=== PATIENT | male | born 1985 | race American Indian/Alaskan Native ===

== ENCOUNTER 2018-07-09 17:52 | Emergency (ER) | payer MEDICAID, OTHER, SELFPAY ==
[2018-07-09 17:54] VITALS: BP 135/79; PULSE 87; RESP 19; TEMP 36.3; O2SAT 95
[2018-07-09 18:01] VITALS: PULSE 89; RESP 18; O2SAT 94
[2018-07-09 18:03] VITALS: PULSE 89; RESP 17; O2SAT 94
--- NOTE | 2018-07-09 18:04 | DI.RAD.S_ITS ---
PROCEDURE: XR CHEST 2V INDICATIONS: sob, wheezing TECHNIQUE: 2 views of the chest were acquired. COMPARISON: [facility], , CHEST 1 VIEW, 09/04/2017, 22:48. FINDINGS: Surgical changes and devices: None. Lungs and pleura: No pleural effusions or pneumothorax. Lungs are clear. Mediastinum: Mediastinal contours are normal. Heart size is normal. Bones and chest wall: No suspicious bony abnormalities. Soft tissues appear unremarkable. IMPRESSION: No acute cardiopulmonary pathology. Dictated by: Barrington Barron M.D. on 07/09/2018 at 18:30 Approved by: Barrington Barron M.D. on 07/09/2018 at 18:31
[2018-07-09] MEDS: ALBUTEROL 2.5 MG/3 ML NEB (ADULT) INH (18:10)
[2018-07-09] MEDS: ALBUTEROL/IPRATROPIUM 3 ML AMPUL INH (18:10)
--- NOTE | 2018-07-09 18:13 | ED_ITS ---
HPI - SOB/Dyspnea General Chief Complaint: Shortness of Breath/Dyspnea Stated Complaint: BREATHING PROBLEMS Time Seen by Provider: 07/09/18 18:13 Source: patient Mode of arrival: ambulatory Limitations: no limitations History of Present Illness Patient is a 33-year-old female here for evaluation of cough and wheezing and shortness of breath. Patient states that it started within the past day or so. No fevers. Has not tried anything for prior to arrival. No history of asthma. Related Data Home Medications Medication Instructions Recorded Confirmed terbinafine HCl [Lamisil] #0 08/08/17 Previous Rx's Medication Instructions Recorded cyclobenzaprine 5 mg PO Q8HP PRN #10 tab 07/06/16 hydrocodone-acetaminophen [Mal[place]] 1 tab PO Q6HP PRN #10 tab 07/06/16 ibuprofen 800 mg PO TIDP PRN #30 tab 07/06/16 oseltamivir [Tamiflu] 75 mg PO BID #9 cap 08/16/16 prednisone 50 mg PO AMCC #5 tab 09/04/17 albuterol sulfate 2 puff INHALATION Q4-6H PRN #18 07/09/18 gram Allergies Allergy/AdvReac Type Severity Reaction Status Date / Time naproxen [NAPROXEN] Allergy Severe Unverified 01/13/18 12:54 Review of Systems Constitutional Denies fever(s) Cardiovascular Denies chest pain, Reports dyspnea and Reports dyspnea on exertion Respiratory Reports cough, Reports excessive phlegm production, Reports dyspnea, Reports dyspnea on exertion and Reports wheezing Gastrointestinal Gastrointestinal: Denies abdominal pain, Denies nausea and Denies vomiting Musculoskeletal Denies myalgias and Denies arthralgias Integumentary/Breasts Denies lesions and Denies rash Hematologic/Lymphatic Denies easy bleeding and Denies easy bruising Allergic/Immunologic Reports wheezing PFSH Medical History Healthy adult (Acute) Surgical History No pertinent past surgical history (Acute) Social History Smoking Status: Current every day smoker Exam Initial Vital Signs Initial Vital Signs: Vital Signs Temperature 97.4 F L 07/09/18 17:54 Pulse Rate 87 07/09/18 17:54 Respiratory Rate 19 07/09/18 17:54 Blood Pressure 135/79 07/09/18 17:54 Pulse Oximetry 95 07/09/18 17:54 Const General: cooperative, healthy appearing, comfortable, well developed, well groomed and No acute distress Orientation: alert, awake and oriented x3 HENMT Head: normal to inspection and normocephalic Resp Effort & Inspection: normal respiratory effort Auscultation: clear to auscultation bilaterally Cardio Rate: regular rate Rhythm: regular rhythm Pulses: radial pulses present Skin Lesions: no lesions Rashes: no rashes Neuro General: alert, awake and oriented x3 Psych Appearance: grossly normal and well kempt Course Orders Ordered: ED Orders 07/09/18 18:04 XR chest 2V Stat Discontinued Medications Albuterol (Ventolin) 2.5 mg INH NOW ONE Stop: 07/09/18 18:01 Last Admin: 07/09/18 18:10 Dose: 2.5 mg Albuterol/Ipratropium (Duoneb) 3 ml INH NOW ONE Stop: 07/09/18 18:01 Last Admin: 07/09/18 18:10 Dose: 3 ml Dexamethasone (Decadron) 10 mg PO NOW ONE Stop: 07/09/18 18:38 Last Admin: 07/09/18 18:47 Dose: 10 mg Vital Signs - 8 hr 07/09/18 18:55 Temperature 98.2 F Pulse Rate 80 Respiratory Rate 19 Blood Pressure 144/82 H Pulse Oximetry 97 MDM - SOB/Dyspnea Imaging Data Chest x-ray: Radiologist's impression: PROCEDURE: XR CHEST 2V INDICATIONS: sob, wheezing TECHNIQUE: 2 views of the chest were acquired. COMPARISON: [facility], CHEST 1 VIEW, 09/04/2017, 22:48. FINDINGS: Surgical changes and devices: None. Lungs and pleura: No pleural effusions or pneumothorax. Lungs are clear. Mediastinum: Mediastinal contours are normal. Heart size is normal. Bones and chest wall: No suspicious bony abnormalities. Soft tissues appear unremarkable. IMPRESSION: No acute cardiopulmonary pathology. Dictated by: Barrington Barron M.D. on 07/09/2018 at 18:30 Approved by: Barrington Barron M.D. on 07/09/2018 at 18:31 [facility] Narrative Medical decision making narrative: Patient received a nebulizer treatment prior to my evaluation in the ER. After his nebulizer treatment she states she felt much better. Her chest x-ray is unremarkable. Her lungs were clear at the time of my exam. Doubt pneumonia. No indication for antibiotics. Patient was given return precautions. She expressed understanding and agreement plan. Discharge Plan Departure Patient Disposition: Home Clinical Impression: Acute bronchospasm, Upper respiratory infection Discharge Date/Time: 07/09/18 18:58 Interventions: ED Discharge Assessment Last Done: 07/09/18 18:55 Instructions: DI for Viral Upper Respiratory Infection -- Adult Activity Restrictions/Additional Instructions: There was no pneumonia on your chest x-ray today. You were given a dose of steroids here in the emergency department which should help for the next couple days. I would recommend that you start a oral decongestant such as Marisol/ Claritin/Zyrtec or the generic versions of these medications. Your also given a prescription for albuterol. Would recommend that every 4 hr while you are awake for the next 24 that you take 2 puffs of this medication. Return to the emergency department for any new or worsening symptoms Prescriptions: New albuterol sulfate 90 mcg/actuation HFA aerosol inhaler 2 puff INHALATION Q4-6H PRN (Reason: shortness of breath or wheezing) Qty: 18 RF: 0 No Action ibuprofen 800 MG tablet 800 mg PO TIDP PRNQty: 30 RF: 0 hydrocodone-acetaminophen [Mal[place]] 5 MG/325 MG tablet 1 tab PO Q6HP PRNQty: 10 RF: 0 cyclobenzaprine 5 MG tablet 5 mg PO Q8HP PRNQty: 10 RF: 0 oseltamivir [Tamiflu] 75 MG capsule 75 mg PO BID Qty: 9 RF: 0 terbinafine HCl [Lamisil] 250 MG tablet Qty: 0 RF: 0 prednisone 50 MG tablet 50 mg PO AMCC Qty: 5 RF: 0
--- NOTE | 2018-07-09 18:21 | PC.NURSE ---
Pt states that after his nebulizers he feels much better. States when he walks, he had a slight increase in Shortness of Breath. Denies any current shortness of breath.
[2018-07-09] MEDS: DEXAMETHASONE 10 MG/ML VIAL PO (18:47)
[2018-07-09 18:55] VITALS: BP 144/82; PULSE 80; RESP 19; TEMP 36.8; O2SAT 97
== END 2018-07-09 18:58 | disposition home or self-care (01) ==
PROVIDERS: Emergency Provider Emergency Medicine
DX: J98.01 Acute bronchospasm (principal); J06.9 Acute upper respiratory infection, unspecified
CPT/HCPCS: 71046; 94640; 99283; J1100; J7613

== ENCOUNTER 2018-11-08 15:36 | Emergency (ER) | payer MEDICAID, OTHER, SELFPAY ==
[2018-11-08 15:45] VITALS: BP 120/78; PULSE 95; RESP 26; TEMP 36.1; O2SAT 96
[2018-11-08 16:04] VITALS: PULSE 61; RESP 15; O2SAT 96
[2018-11-08] MEDS: ALBUTEROL/IPRATROPIUM 3 ML AMPUL INH (16:04)
--- NOTE | 2018-11-08 16:06 | ED.SOB ---
HPI - SOB/Dyspnea General Chief Complaint: Shortness of Breath/Dyspnea Stated Complaint: OUT OF INHALER HARD TIME BREATHING Time Seen by Provider: 11/08/18 16:06 Source: patient Mode of arrival: ambulatory Limitations: no limitations History of Present Illness Patient is a 33-year-old male who 4 months ago saw all a provider over on the [facility] for shortness of breath and wheezing. He was given an albuterol inhaler and AeroChamber. He does not remember any specific diagnosis. He states that since that time he has been using his albuterol inhaler every 4 hr. He has gone through for refills of this medication. He is here today because the clinic on the [facility] was closed and he needed a refill of his medications. He states he has used every day for the past 4 months. Does not appear that he has followed up with the primary doctor. He stated that he was given the inhaler because he was wheezing denies any chest pain. No lower extremity swelling. No fevers. Related Data Previous Rx's Medication Instructions Recorded albuterol sulfate 2 puff INHALATION Q4-6H PRN #18 07/09/18 gram albuterol sulfate 2 puff INHALATION Q4-6H PRN #18 11/08/18 gram Allergies Allergy/AdvReac Type Severity Reaction Status Date / Time naproxen [NAPROXEN] Allergy Severe Unverified 01/13/18 12:54 Review of Systems Constitutional Denies fever(s) Cardiovascular Denies chest pain and Reports dyspnea Respiratory Reports cough, Reports dyspnea and Reports wheezing Gastrointestinal Gastrointestinal: Denies abdominal pain, Denies nausea and Denies vomiting Musculoskeletal Denies myalgias and Denies arthralgias Integumentary/Breasts Denies rash Hematologic/Lymphatic Comments: Not on anticoagulation Allergic/Immunologic Denies urticaria and Reports wheezing PFSH Medical History Healthy adult (Acute) Surgical History No pertinent past surgical history (Acute) Social History Smoking Status: Current every day smoker Social History Smoking Status: Current every day smoker Exam Initial Vital Signs Initial Vital Signs: Vital Signs Temperature 97.0 F L 11/08/18 15:45 Pulse Rate 95 H 11/08/18 15:45 Respiratory Rate 26 H 11/08/18 15:45 Blood Pressure 120/78 11/08/18 15:45 Pulse Oximetry 96 11/08/18 15:45 Const General: cooperative, comfortable, well developed, well groomed and No acute distress Orientation: alert, awake and oriented x3 HENMT Head: normal to inspection and normocephalic Resp Effort & Inspection: normal respiratory effort Auscultation: clear to auscultation bilaterally Cardio Rate: regular rate Rhythm: regular rhythm Pulses: radial pulses present GI Inspection: non-distended Palpation: soft Skin Lesions: no lesions Rashes: no rashes Neuro General: alert, awake and oriented x3 Extrem General: normal to inspection and capillary refill normal Psych Appearance: grossly normal and well kempt Course Orders Ordered: Discontinued Medications Albuterol/Ipratropium (Duoneb) 3 ml INH NOW ONE Stop: 11/08/18 16:03 Last Admin: 11/08/18 16:04 Dose: 3 ml Vital Signs - 8 hr 11/08/18 15:45 11/08/18 16:04 Temperature 97.0 F L Pulse Rate 95 H 61 Respiratory Rate 26 H 15 Blood Pressure 120/78 Pulse Oximetry 96 96 MDM - SOB/Dyspnea MDM Narrative Medical decision making narrative: My evaluation the patient was done after he received a DuoNeb here in the emergency department. He had no wheezing at that time. Respiratory therapy stated that he did have diffuse wheezing prior to this treatment. Patient states that he feels better. It appears he has been taking his albuterol every 4 hr for the past 4 months on a daily basis. He has not followed up with his primary doctor since the initial prescription. He states he has not been treated with any other medications. I informed him that the albuterol should be a rescue inhaler. Informed him that [place] to discuss pulmonary function test. I will refill his albuterol for now. He was given return precautions. He expressed understanding and agreement with plan. Discharge Plan Departure Patient Disposition: Home Clinical Impression: Diffuse wheezing Instructions: DI for Reactive Airway Disease-Adult Activity Restrictions/Additional Instructions: Tomorrow you [place]. I do recommend that you talk with your doctor about the indications for pulmonary function test. You should not need to use the albuterol as much as you are using it. Return to the emergency department for any new or worsening symptoms. Prescriptions: New albuterol sulfate 90 mcg/actuation HFA aerosol inhaler 2 puff INHALATION Q4-6H PRN (Reason: shortness of breath or wheezing) Qty: 18 RF: 0 No Action albuterol sulfate 90 mcg/actuation HFA aerosol inhaler 2 puff INHALATION Q4-6H PRN (Reason: shortness of breath or wheezing) Qty: 18 RF: 0
--- NOTE | 2018-11-08 16:15 | PC.NURSE ---
Reports cough/SOB for 3-4 months. Ran out of inhaler.
[2018-11-08 17:01] VITALS: BP 122/68; PULSE 78; RESP 16; O2SAT 98
== END 2018-11-08 17:02 | disposition home or self-care (01) ==
PROVIDERS: Emergency Provider Emergency Medicine
DX: R06.2 Wheezing (principal)
CPT/HCPCS: 94640; 99282; 99283

== ENCOUNTER 2018-11-14 08:00 | Emergency (ER) | payer MEDICAID, OTHER, SELFPAY ==
[2018-11-14 08:10] VITALS: BP 127/78; PULSE 74; RESP 22; TEMP 36.4; O2SAT 95
[2018-11-14 08:25] VITALS: PULSE 70; RESP 14; O2SAT 96
[2018-11-14] MEDS: ALBUTEROL/IPRATROPIUM 3 ML AMPUL INH (08:25)
[2018-11-14] MEDS: ALBUTEROL 2.5 MG/3 ML NEB (ADULT) INH (08:38)
--- NOTE | 2018-11-14 08:38 | ED.SOB ---
HPI - SOB/Dyspnea General Chief Complaint: Shortness of Breath/Dyspnea Stated Complaint: SOB,CAN'T FIND INHALER Time Seen by Provider: 11/14/18 08:31 Source: patient Mode of arrival: ambulatory Limitations: no limitations History of Present Illness 33-year-old male comes with complaint of shortness of breath. Patient states he has been having this for several months. He has had checks x-ray in the past and use albuterol sometimes every couple hours. Patient states that he could find his inhaler today so he came to the ER. He short of breath and wheezy. He feels short tight in upper chest when this. Has not had any fevers recently, no nuchal cough or congestion. He sometimes has nasal congested and was started on nasal spray which he states helps a little bit. Patient is not having any chest pain or pressure. No nausea no vomiting no other GI or urinary symptoms. He states that they have been trying to set him up for pulmonary function testing. He is not on any steroid inhalers. He denies any other past medical history, no prior surgical history. He states that he does get a rash when he takes naproxen. Patient currently denies any tobacco or vaping history. Related Data Previous Rx's Medication Instructions Recorded albuterol sulfate 2 puff INHALATION Q4-6H PRN #18 07/09/18 gram albuterol sulfate 2 puff INHALATION Q4-6H PRN #18 11/08/18 gram albuterol sulfate 2 inhalation INHALATION Q4-6H PRN 11/14/18 #1 each beclomethasone dipropionate [Qvar 1 puff INHALATION BID #10.6 gram 11/14/18 RediHaler] prednisone 40 mg PO DAILY #6 tab 11/14/18 Allergies Allergy/AdvReac Type Severity Reaction Status Date / Time naproxen [NAPROXEN] Allergy Severe Unverified 01/13/18 12:54 Review of Systems Review of Systems ROS Unobtainable: All systems reviewed & are unremarkable except as noted in HPI and below Constitutional Denies chills and Denies fever(s) ENT Ears, Nose, Mouth, and Throat: Reports nasal congestion (sometimes) Cardiovascular Denies chest pain, Denies edema, Denies lightheadedness, Denies palpitations, Reports dyspnea and Reports dyspnea on exertion Respiratory Denies change in phlegm color, Denies chest congestion, Denies cough, Denies excessive phlegm production, Denies pain on inspiration, Reports dyspnea, Reports dyspnea on exertion, Denies stridor and Reports wheezing Gastrointestinal Gastrointestinal: Denies abdominal pain, Denies change in bowel habits, Denies diarrhea, Denies nausea and Denies vomiting Endocrine Denies palpitations Allergic/Immunologic Reports wheezing [facility] Medical History Healthy adult (Acute) Surgical History No pertinent past surgical history (Acute) Social History Smoking Status: Current every day smoker Social History Smoking Status: Current every day smoker Exam Narrative Exam Narrative: GEN: obese, well appearing male, alert and oriented x 3, patient appears to be in mild distress. HEENT: Atraumatic, pupils are equal round reactive to light, extraocular movements are intact, nares are clear HEART: Regular rate and rhythm without murmur, clicks, rubs. = LUNGS:Lung breath sounds are equal bilaterally, patient has expiratory wheezes bilaterally, no rales, crackles, chest moves symmetrically. No tachypnea, no accessory muscle use. ABD:bowel sounds normal, soft, non-tender, no guarding, rebound, rigidity, no masses noted, no hepatosplenomegaly MSCL: Non-tender, no muscle atrophy, muscles strength 5/5 upper and lower extremities, full range of motion, normal gait NEURO:CN 2-12 intact, sensation normal Initial Vital Signs Initial Vital Signs: Vital Signs Temperature 97.6 F 11/14/18 08:10 Pulse Rate 74 11/14/18 08:10 Respiratory Rate 22 11/14/18 08:10 Blood Pressure 127/78 11/14/18 08:10 Pulse Oximetry 95 11/14/18 08:10 Course Orders Ordered: ED Orders 11/14/18 08:23 Consult to Respiratory Therapy Evaluate & Treat Discontinued Medications Albuterol (Ventolin) 2.5 mg INH NOW ONE Stop: 11/14/18 08:37 Last Admin: 11/14/18 08:38 Dose: 2.5 mg Albuterol/Ipratropium (Duoneb) 3 ml INH NOW ONE Stop: 11/14/18 08:24 Last Admin: 11/14/18 08:25 Dose: 3 ml Vital Signs - 8 hr 11/14/18 08:10 11/14/18 08:25 11/14/18 08:44 Temperature 97.6 F Pulse Rate 74 70 90 Respiratory Rate 22 14 Blood Pressure 127/78 Pulse Oximetry 95 96 98 MDM - SOB/Dyspnea MDM Narrative Medical decision making narrative: Discussed with patient he has had x-ray imaging in the past for evaluation of lung structure with no acute changes. Discussed with patient he does need to get a PFT, we also discussed starting a steroid inhaler which I think would be helpful for him. He may benefit from a very short burst of steroids. Patient has follow-up with primary care. He does have a spacer at home and has had teaching in the past had to use it. Recheck after DuoNeb and a 2nd albuterol and patient is completely clear with no wheezing. He states he feels much better. Reviewed that he should use the steroid inhaler twice daily regardless of symptoms. And to use the albuterol as a Band-Aid or rescue inhaler. He has spacer. We did discuss rinsing his mouth to avoid steroid/thrush. Patient has follow-up with primary care that had discussion about PFT he is going to work on getting that set up. Gave him a script for a short burst of steroids as needed. Patient and family are comfortable with the plan. Discharge Plan Departure Patient Disposition: Home Clinical Impression: Exacerbation of reactive airway disease Qualifiers: Asthma persistence: persistent Instructions: DI for Reactive Airway Disease-Adult Activity Restrictions/Additional Instructions: Follow up with primary care in the next 2-3 days for recheck and to get you pulmonary function testing of your lungs. Call for an appointment tomorrow. Continue albuterol 1-2 puffs every 4 hours as needed for wheezing/shortness of breath. Start steroid inhaler and use twice daily regardless of wheezing or if no wheezing. Take oral steroids until gone. Take with food or milk. Return to the emergency department for persistent fevers, increasing shortness of breath, lightheadedness, passing out, chest pain or pressure, persistent vomiting, swelling in her lower extremities or other new or concerning symptoms. Prescriptions: New prednisone 20 mg tablet 40 mg PO DAILY Qty: 6 RF: 0 albuterol sulfate 90 mcg/actuation aerosol powdr breath activated 2 inhalation INHALATION Q4-6H PRN (Reason: shortness of breath or wheezing) Qty: 1 RF: 0 Qvar RediHaler 80 mcg/actuation HFA aerosol breath activated 1 puff INHALATION BID Qty: 10.6 RF: 0 No Action albuterol sulfate 90 mcg/actuation HFA aerosol inhaler 2 puff INHALATION Q4-6H PRN (Reason: shortness of breath or wheezing) Qty: 18 RF: 0 albuterol sulfate 90 mcg/actuation HFA aerosol inhaler 2 puff INHALATION Q4-6H PRN (Reason: shortness of breath or wheezing) Qty: 18 RF: 0 Stand Alone Forms: Work Release Note
[2018-11-14 08:44] VITALS: PULSE 90; O2SAT 98
[2018-11-14 09:23] VITALS: BP 131/73; PULSE 69; RESP 18; O2SAT 96
== END 2018-11-14 09:25 | disposition home or self-care (01) ==
PROVIDERS: Emergency Provider Emergency Medicine
DX: J45.901 Unspecified asthma with (acute) exacerbation (principal)
CPT/HCPCS: 94640; 99282; J7613

== ENCOUNTER 2019-04-27 10:03 | Inpatient (IN) | payer MEDICAID, OTHER, SELFPAY ==
[2019-04-27] VITALS (14 sets, daily range): BP systolic 124–151; BP diastolic 50–75; PULSE 66–100; RESP 19–35; TEMP 36.5–36.8; O2SAT 88–96; BMI 39.5
--- NOTE | 2019-04-27 10:13 | DI.RAD.S_ITS ---
PROCEDURE: XR CHEST 2V INDICATIONS: shortness of breath TECHNIQUE: 2 views of the chest were acquired. COMPARISON: [facility], CR, XR CHEST 2V, 07/09/2018, 17:46. FINDINGS: Surgical changes and devices: None. Lungs and pleura: Lungs are clear. No pleural effusions or pneumothorax. Mediastinum: Mediastinal contours are normal. Heart size is normal. Bones and chest wall: No suspicious bony abnormalities. Soft tissues appear unremarkable. IMPRESSION: No acute cardiopulmonary pathology. Dictated by: Barrington Barron M.D. on 04/27/2019 at 10:37 Approved by: Barrington Barron M.D. on 04/27/2019 at 10:37
--- NOTE | 2019-04-27 10:19 | ED.ASTHMA ---
HPI - Asthma General Chief Complaint: Asthma Stated Complaint: asthma exacerbation Time Seen by Provider: 04/27/19 10:19 Source: patient Mode of arrival: ambulatory Limitations: no limitations History of Present Illness HPI Narrative: 34-year-old male comes in with complaint of wheezing. Patient states started yesterday. He got an albuterol inhaler from the clinic and has been using at throughout the day with multiple puffs. Patient states that he has not had any fevers or chills. He has had a cough it has been a little bit productive clearish coloration. Patient denies any chest pain or pressure. Little bit headache numb, no nausea or vomiting. No other GI or urinary symptoms. No swelling in his lower extremities. Patient has known asthma, denies any other medical issues. Does not use tobacco but does smoke marijuana intermittently. No recent marijuana use. He denies any prior hospitalizations for his asthma but has had many ER visits. He has never been intubated or had BiPAP. He states that he picked up the inhaler yesterday at the pharmacy. He is not currently on any other medications. No cold cough or congestion that he is aware of. Related Data Home Medications Medication Instructions Recorded Confirmed albuterol sulfate [ProAir HFA] 2 puff INHALATION Q4H PRN 04/27/19 04/27/19 Previous Rx's Medication Instructions Recorded beclomethasone dipropionate [Qvar 1 puff INHALATION BID #10.6 gram 11/14/18 RediHaler] Allergies Allergy/AdvReac Type Severity Reaction Status Date / Time naproxen [NAPROXEN] Allergy Severe Wheezing Verified 04/27/19 10:21 Review of Systems Review of Systems ROS Unobtainable: All systems reviewed & are unremarkable except as noted in HPI and below Constitutional Denies chills, Denies fever(s), Reports headache(s), Denies lethargy and Denies weakness ENT Ears, Nose, Mouth, and Throat: Reports headache(s) Cardiovascular Denies chest pain, Denies irregular heart rhythm, Denies lightheadedness, Reports palpitations, Reports dyspnea, Reports dyspnea on exertion and Denies orthopnea Respiratory Denies change in phlegm color, Denies chest congestion, Reports cough, Reports excessive phlegm production (Clear), Reports dyspnea, Reports dyspnea on exertion and Reports wheezing Gastrointestinal Gastrointestinal: Denies abdominal pain, Denies change in bowel habits, Denies diarrhea, Denies nausea and Denies vomiting Genitourinary Denies hematuria, Denies flank pain, Denies urinary frequency and Denies urinary urgency Musculoskeletal Denies other (Swelling lower extremities) Neurologic Reports headache(s) and Denies weakness Endocrine Reports palpitations Allergic/Immunologic Reports wheezing Exam Narrative Exam Narrative: GENERAL: Alert and oriented x three, obese, well-appearing male in [id number] distress. HEENT: Head normocephalic, atraumatic, EOMI, pupils reactive, face symmetric, moist mucous membranes NECK: Supple, full range of motion CARDIOVASCULAR: Tachycardic but Regular rate and rhythm without murmurs, rubs or gallops. RESPIRATORY: Breath sounds equal bilaterally, bilateral wheezes particularly in the bases, no crackles rales or rhonchi. Mild tachypnea. Patient is able to speak in 5-6 word sentences. ABDOMEN: Soft, nontender. Normoactive bowel sounds all 4 quadrants. No guarding or rebound, rigidity, no mass : No CVA tenderness EXTREMITIES: Normal range of motion, no clubbing or edema. Neurovascularly intact NEUROLOGICAL: Cranial nerves II through XII grossly intact. Moving all extremities SKIN: Warm, dry, no petechiae, no rashes or lesions. Initial Vital Signs Initial Vital Signs: Vital Signs Temperature 97.7 F 04/27/19 10:00 Pulse Rate 94 H 04/27/19 10:00 Respiratory Rate 21 04/27/19 10:00 Blood Pressure 151/68 H 04/27/19 10:00 Pulse Oximetry 93 04/27/19 10:00 [facility] Social History (Updated 04/27/19 @ 10:26 by Magaly Bernstein DO) household members: none Smoking Status: Former smoker alcohol intake: current substance use type: marijuana Course Orders Ordered: ED Orders 04/27/19 12:05 Respiratory Panel (Film Array) Stat 04/27/19 14:00 Education, smoking cessation ONGOING 04/27/19 14:03 Consult to Discharge Planning Routine Education, smoking cessation ONGOING 04/27/19 15:10 MRSA PCR Stat Al Hydrox/Mg Hydrox/Simethicone (Maalox Plus) 30 ml PO Q6HR PRN PRN Reason: Dyspepsia Albuterol (Ventolin) 2.5 mg INH [id number] PRN PRN Reason: Shortness Of Breath Albuterol/Ipratropium (Duoneb) 3 ml INH RTQ4HR [facility] Last Admin: 04/27/19 16:20 Dose: 3 ml Calcium Carbonate (Tums) 1,000 mg PO Q4HR PRN PRN Reason: Dyspepsia Loratadine (Claritin) 10 mg PO DAILY [facility] Last Admin: 04/27/19 15:35 Dose: 10 mg Magnesium Hydroxide (Milk Of Magnesia) 30 ml PO DAILY PRN PRN Reason: Constipation Methylprednisolone (Solu-Medrol 125 Mg Vial) 60 mg IV Q8H [facility] Last Admin: 04/27/19 15:35 Dose: 60 mg Stored In Pharmacy 1 each INH DAILY PRN PRN Reason: PROTOCOL Ondansetron HCl (Zofran) 4 mg IV Q8HR PRN PRN Reason: Nausea And Vomiting Sennosides (Senna) 17.2 mg PO BEDTIME [facility] Discontinued Medications Albuterol (Ventolin) 7.5 mg INH NOW ONE Stop: 04/27/19 10:24 Last Admin: 04/27/19 10:34 Dose: 7.5 mg Albuterol (Ventolin) 2.5 mg INH NOW ONE Stop: 04/27/19 13:49 Last Admin: 04/27/19 13:48 Dose: 2.5 mg Magnesium Sulfate (Magnesium Sulfate) 2 gm in 50 mls @ 25 mls/hr IV NOW ONE Stop: 04/27/19 12:23 Last Infusion: 04/27/19 12:18 Dose: 0 mls/hr Admin: 04/27/19 10:29 Dose: 25 mls/hr Famotidine (Pepcid) 20 mg in 50 mls @ 200 mls/hr IV NOW ONE Stop: 04/27/19 14:14 Last Admin: 04/27/19 15:42 Dose: 200 mls/hr Methylprednisolone (Solu-Medrol 125 Mg Vial) 125 mg IV NOW ONE Stop: 04/27/19 10:24 Last Admin: 04/27/19 10:29 Dose: 125 mg Vital Signs - 8 hr 04/27/19 11:30 04/27/19 12:00 04/27/19 12:30 Pulse Rate 100 H 82 93 H Respiratory Rate 27 H 28 H 30 H Blood Pressure Blood Pressure [Right Arm] 134/50 L 124/56 L 138/61 Pulse Oximetry 91 90 L 88 L 04/27/19 13:00 04/27/19 13:30 04/27/19 13:54 Pulse Rate 77 72 90 Respiratory Rate 32 H 30 H 28 H Blood Pressure Blood Pressure [Right Arm] 130/72 134/60 Pulse Oximetry 90 L 90 L 04/27/19 14:00 04/27/19 14:56 04/27/19 18:16 Pulse Rate 76 88 Respiratory Rate 19 20 Blood Pressure 139/71 Blood Pressure [Right Arm] 132/61 Pulse Oximetry 94 96 94 MDM - Asthma Lab Data Attestation: I reviewed the patient's lab results. Result diagrams: 04/27/19 10:20 04/27/19 10:20 Lab Results 04/27/19 04/27/19 04/27/19 Range/Units 10:20 10:20 10:20 WBC 6.9 (4.5-11.0) X10^3/uL RBC 4.94 (4.5-5.9) X10^6/uL Hgb 14.4 (13.5-17.5) g/dL Hct 41.5 (41-53) % MCV 84.1 (80-100) fL MCH 29.1 (26-34) PG MCHC 34.7 (30-36) % RDW 13.4 (11.6-14.8) % Plt Count 191 (150-400) X10^3/uL Neut % (Auto) 79.8 H (50-75) % Lymph % (Auto) 11.0 L (25-40) % Mobile % (Auto) 5.2 (3-14) % Eos % (Auto) 3.5 (2-4) % Baso % (Auto) 0.5 (0-2) % Neut # (Auto) 5500 (0470-7131) /uL Lymph # (Auto) 800 L (5999-4957) /uL Mobile # (Auto) 400 (0-900) /uL Eos # (Auto) 200 (0-450) /uL Baso # (Auto) 0 (0-100) /uL Sodium 141 (137-145) mmol/L Potassium 3.6 (3.4-5.1) mmol/L Chloride 105 (98-107) mmol/L Carbon Dioxide 25 (22-32) mmol/L BUN 8 L (9-20) mg/dL Creatinine 0.60 L (0.66-1.25) mg/dL Estimated GFR > 60.0 (>60) mL/min BUN/Creatinine Ratio 13.3 (6-22) Glucose 126 H (70-100) mg/dL Lactate 1.5 (0.7-2.1) mmol/L Calcium 9.0 (8.4-10.2) mg/dL Total Bilirubin 0.7 (0.2-1.3) mg/dL AST 18 (17-59) IU/L ALT 30 (21-72) IU/L Alkaline Phosphatase 74 (38-126) U/L Total Protein 7.2 (6.3-8.2) g/dL Albumin 4.3 (3.5-5.0) g/dL Globulin 2.9 (1.7-4.1) g/dL Albumin/Globulin Ratio 1.5 (1.0-2.8) Nasal Screen MRSA (PCR) (Negative) Chlamy pneumoniae PCR (Not Detect) Adenovirus (PCR) (Not Detect) B.parapertussis DNA PCR (Not Detect) Coronavirus OC43 (PCR) (Not Detect) Coronavirus HKU1 (PCR) (Not Detect) Coronavirus 229E (PCR) (Not Detect) Coronavirus NL63 (PCR) (Not Detect) Human Metapneumovir PCR (Not Detect) Influenza Type A (PCR) (Not Detect) Influenza Type B (PCR) (Not Detect) M. pneumoniae (PCR) (Not Detect) Parainfluenza 1 (PCR) (Not Detect) Parainfluenza 2 (PCR) (Not Detect) Parainfluenza 3 (PCR) (Not Detect) Parainfluenza 4 (PCR) (Not Detect) RSV (PCR) (Not Detect) Entero/Rhino (PCR) (Not Detect) 04/27/19 04/27/19 Range/Units 12:05 15:10 WBC (4.5-11.0) X10^3/uL RBC (4.5-5.9) X10^6/uL Hgb (13.5-17.5) g/dL Hct (41-53) % MCV (80-100) fL MCH (26-34) PG MCHC (30-36) % RDW (11.6-14.8) % Plt Count (150-400) X10^3/uL Neut % (Auto) (50-75) % Lymph % (Auto) (25-40) % Mobile % (Auto) (3-14) % Eos % (Auto) (2-4) % Baso % (Auto) (0-2) % Neut # (Auto) (1008-4288) /uL Lymph # (Auto) (5110-3597) /uL Mobile # (Auto) (0-900) /uL Eos # (Auto) (0-450) /uL Baso # (Auto) (0-100) /uL Sodium (137-145) mmol/L Potassium (3.4-5.1) mmol/L Chloride (98-107) mmol/L Carbon Dioxide (22-32) mmol/L BUN (9-20) mg/dL Creatinine (0.66-1.25) mg/dL Estimated GFR (>60) mL/min BUN/Creatinine Ratio (6-22) Glucose (70-100) mg/dL Lactate (0.7-2.1) mmol/L Calcium (8.4-10.2) mg/dL Total Bilirubin (0.2-1.3) mg/dL AST (17-59) IU/L ALT (21-72) IU/L Alkaline Phosphatase (38-126) U/L Total Protein (6.3-8.2) g/dL Albumin (3.5-5.0) g/dL Globulin (1.7-4.1) g/dL Albumin/Globulin Ratio (1.0-2.8) Nasal Screen MRSA (PCR) Negative for mrsa (Negative) Chlamy pneumoniae PCR Not detected (Not Detect) Adenovirus (PCR) Not detected (Not Detect) B.parapertussis DNA PCR Not detected (Not Detect) Coronavirus OC43 (PCR) Not detected (Not Detect) Coronavirus HKU1 (PCR) Not detected (Not Detect) Coronavirus 229E (PCR) Not detected (Not Detect) Coronavirus NL63 (PCR) Not detected (Not Detect) Human Metapneumovir PCR Not detected (Not Detect) Influenza Type A (PCR) Not detected (Not Detect) Influenza Type B (PCR) Not detected (Not Detect) M. pneumoniae (PCR) Not detected (Not Detect) Parainfluenza 1 (PCR) Not detected (Not Detect) Parainfluenza 2 (PCR) Not detected (Not Detect) Parainfluenza 3 (PCR) Not detected (Not Detect) Parainfluenza 4 (PCR) Not detected (Not Detect) RSV (PCR) Not detected (Not Detect) Entero/Rhino (PCR) Detected H (Not Detect) Imaging Data Chest x-ray: Radiologist's impression: [address] [address] XRay Report Signed Patient: Irene Guzman LMR#: [id number] : 1985Acct:[id number] Age/Sex: 34 / MDate of Service: 04/27/19 Loc: ED Accession Number: [id number] Procedure: XR chest 2V Ordering Provider: Magaly Bernstein D.O. PROCEDURE: XR CHEST 2V INDICATIONS: shortness of breath TECHNIQUE: 2 views of the chest were acquired. COMPARISON: [facility], , XR CHEST 2V, 07/09/2018, 17:46. FINDINGS: Surgical changes and devices: None. Lungs and pleura: Lungs are clear. No pleural effusions or pneumothorax. Mediastinum: Mediastinal contours are normal. Heart size is normal. Bones and chest wall: No suspicious bony abnormalities. Soft tissues appear unremarkable. IMPRESSION: No acute cardiopulmonary pathology. Dictated by: Barrington Barron M.D. on 04/27/2019 at 10:37 Approved by: Barrington Barron M.D. on 04/27/2019 at 10:37 [facility] Narrative Medical decision making narrative: Patient comes in wheezing, slightly tachycardic. Patient received DuoNeb and 2 albuterol in route [facility] He received 3 additional albuterol here in the department. Patient was improving but then started to require oxygen via nasal cannula. Wheezing has improved he feels a little bit more comfortable but he is requiring oxygen. Chest x-ray was negative, lab work is otherwise normal. Patient has history of asthma. With Dr. Tse who accepts for admission, she requests respiratory panel which was positive for entero/rhinovirus. Patient denies any recent nasal congestion. While patient was here his mother arrived and smelled very strongly of smoke from the smoke [place]. Patient's wheezing worsened and his oxygenation requirements increased to 4.5 L. On recheck he is diffusely wheezy and was given 2 additional albuterol. Patient improved and was transferred to inpatient side. Discharge Plan Departure Patient Disposition: Admitted As Inpatient Clinical Impression: Asthma exacerbation Discharge Date/Time: 04/27/19 14:51 Interventions: ED Discharge Assessment Last Done: 04/27/19 14:15 Admit Date/Time: 04/27/19 12:14 Admit Provider: Eda Tse
--- NOTE | 2019-04-27 10:27 | ED_ITS ---
HPI - Asthma General Chief Complaint: Asthma Stated Complaint: asthma exacerbation Time Seen by Provider: 04/27/19 10:19 Source: patient Mode of arrival: ambulatory Limitations: no limitations History of Present Illness HPI Narrative: 34-year-old male comes in with complaint of wheezing. Patient states started yesterday. He got an albuterol inhaler from the clinic and has been using at throughout the day with multiple puffs. Patient states that he has not had any fevers or chills. He has had a cough it has been a little bit productive clearish coloration. Patient denies any chest pain or pressure. Little bit headache numb, no nausea or vomiting. No other GI or urinary symptoms. No swelling in his lower extremities. Patient has known asthma, denies any other medical issues. Does not use tobacco but does smoke marijuana intermittently. No recent marijuana use. He denies any prior hospitalizations for his asthma but has had many ER visits. He has never been intubated or had BiPAP. He states that he picked up the inhaler yesterday at the pharmacy. He is not currently on any other medications. No cold cough or congestion that he is aware of. Related Data Home Medications Medication Instructions Recorded Confirmed albuterol sulfate [ProAir HFA] 2 puff INHALATION Q4H PRN 04/27/19 04/27/19 Previous Rx's Medication Instructions Recorded beclomethasone dipropionate [Qvar 1 puff INHALATION BID #10.6 gram 11/14/18 RediHaler] Allergies Allergy/AdvReac Type Severity Reaction Status Date / Time naproxen [NAPROXEN] Allergy Severe Wheezing Verified 04/27/19 10:21 Review of Systems Review of Systems ROS Unobtainable: All systems reviewed & are unremarkable except as noted in HPI and below Constitutional Denies chills, Denies fever(s), Reports headache(s), Denies lethargy and Denies weakness ENT Ears, Nose, Mouth, and Throat: Reports headache(s) Cardiovascular Denies chest pain, Denies irregular heart rhythm, Denies lightheadedness, Rep orts palpitations, Reports dyspnea, Reports dyspnea on exertion and Denies orthopnea Respiratory Denies change in phlegm color, Denies chest congestion, Reports cough, Reports excessive phlegm production (Clear), Reports dyspnea, Reports dyspnea on exertion and Reports wheezing Gastrointestinal Gastrointestinal: Denies abdominal pain, Denies change in bowel habits, Denies diarrhea, Denies nausea and Denies vomiting Genitourinary Denies hematuria, Denies flank pain, Denies urinary frequency and Denies urinary urgency Musculoskeletal Denies other (Swelling lower extremities) Neurologic Reports headache(s) and Denies weakness Endocrine Reports palpitations Allergic/Immunologic Reports wheezing Exam Narrative Exam Narrative: GENERAL: Alert and oriented x three, obese, well-appearing male in [id number] distress. HEENT: Head normocephalic, atraumatic, EOMI, pupils reactive, face symmetric, moist mucous membranes NECK: Supple, full range of motion CARDIOVASCULAR: Tachycardic but Regular rate and rhythm without murmurs, rubs or gallops. RESPIRATORY: Breath sounds equal bilaterally, bilateral wheezes particularly in the bases, no crackles rales or rhonchi. Mild tachypnea. Patient is able to speak in 5-6 word sentences. ABDOMEN: Soft, nontender. Normoactive bowel sounds all 4 quadrants. No guarding or rebound, rigidity, no mass : No CVA tenderness EXTREMITIES: Normal range of motion, no clubbing or edema. Neurovascularly intact NEUROLOGICAL: Cranial nerves II through XII grossly intact. Moving all extremities SKIN: Warm, dry, no petechiae, no rashes or lesions. Initial Vital Signs Initial Vital Signs: Vital Signs Temperature 97.7 F 04/27/19 10:00 Pulse Rate 94 H 04/27/19 10:00 Respiratory Rate 21 04/27/19 10:00 Blood Pressure 151/68 H 04/27/19 10:00 Pulse Oximetry 93 04/27/19 10:00 [facility] Social History (Updated 04/27/19 @ 10:26 by Magaly Bernstein DO) household members: none Smoking Status: Former smoker alcohol intake: current substance use type: marijuana Course Orders Ordered: ED Orders 04/27/19 12:05 Respiratory Panel (Film Array) Stat 04/27/19 14:00 Education, smoking cessation ONGOING 04/27/19 14:03 Consult to Discharge Planning Routine Education, smoking cessation ONGOING 04/27/19 15:10 MRSA PCR Stat Al Hydrox/Mg Hydrox/Simethicone (Maalox Plus) 30 ml PO Q6HR PRN PRN Reason: Dyspepsia Albuterol (Ventolin) 2.5 mg INH [id number] PRN PRN Reason: Shortness Of Breath Albuterol/Ipratropium (Duoneb) 3 ml INH RTQ4HR [facility] Last Admin: 04/27/19 16:20 Dose: 3 ml Calcium Carbonate (Tums) 1,000 mg PO Q4HR PRN PRN Reason: Dyspepsia Loratadine (Claritin) 10 mg PO DAILY [facility] Last Admin: 04/27/19 15:35 Dose: 10 mg Magnesium Hydroxide (Milk Of Magnesia) 30 ml PO DAILY PRN PRN Reason: Constipation Methylprednisolone (Solu-Medrol 125 Mg Vial) 60 mg IV Q8H [facility] Last Admin: 04/27/19 15:35 Dose: 60 mg Stored In Pharmacy 1 each INH DAILY PRN PRN Reason: PROTOCOL Ondansetron HCl (Zofran) 4 mg IV Q8HR PRN PRN Reason: Nausea And Vomiting Sennosides (Senna) 17.2 mg PO BEDTIME [facility] Discontinued Medications Albuterol (Ventolin) 7.5 mg INH NOW ONE Stop: 04/27/19 10:24 Last Admin: 04/27/19 10:34 Dose: 7.5 mg Albuterol (Ventolin) 2.5 mg INH NOW ONE Stop: 04/27/19 13:49 Last Admin: 04/27/19 13:48 Dose: 2.5 mg Magnesium Sulfate (Magnesium Sulfate) 2 gm in 50 mls @ 25 mls/hr IV NOW ONE Stop: 04/27/19 12:23 Last Infusion: 04/27/19 12:18 Dose: 0 mls/hr Admin: 04/27/19 10:29 Dose: 25 mls/hr Famotidine (Pepcid) 20 mg in 50 mls @ 200 mls/hr IV NOW ONE Stop: 04/27/19 14:14 Last Admin: 04/27/19 15:42 Dose: 200 mls/hr Methylprednisolone (Solu-Medrol 125 Mg Vial) 125 mg IV NOW ONE Stop: 04/27/19 10:24 Last Admin: 04/27/19 10:29 Dose: 125 mg Vital Signs - 8 hr 04/27/19 11:30 04/27/19 12:00 04/27/19 12:30 Pulse Rate 100 H 82 93 H Respiratory Rate 27 H 28 H 30 H Blood Pressure Blood Pressure [Right Arm] 134/50 L 124/56 L 138/61 Pulse Oximetry 91 90 L 88 L 04/27/19 13:00 04/27/19 13:30 04/27/19 13:54 Pulse Rate 77 72 90 Respiratory Rate 32 H 30 H 28 H Blood Pressure Blood Pressure [Right Arm] 130/72 134/60 Pulse Oximetry 90 L 90 L 04/27/19 14:00 04/27/19 14:56 04/27/19 18:16 Pulse Rate 76 88 Respiratory Rate 19 20 Blood Pressure 139/71 Blood Pressure [Right Arm] 132/61 Pulse Oximetry 94 96 94 MDM - Asthma Lab Data Attestation: I reviewed the patient's lab results. Result diagrams: 04/27/19 10:20 04/27/19 10:20 Lab Results 04/27/19 04/27/19 04/27/19 Range/Units 10:20 10:20 10:20 WBC 6.9 (4.5-11.0) X10^3/uL RBC 4.94 (4.5-5.9) X10^6/uL Hgb 14.4 (13.5-17.5) g/dL Hct 41.5 (41-53) % MCV 84.1 (80-100) fL MCH 29.1 (26-34) PG MCHC 34.7 (30-36) % RDW 13.4 (11.6-14.8) % Plt Count 191 (150-400) X10^3/uL Neut % (Auto) 79.8 H (50-75) % Lymph % (Auto) 11.0 L (25-40) % Wetzel % (Auto) 5.2 (3-14) % Eos % (Auto) 3.5 (2-4) % Baso % (Auto) 0.5 (0-2) % Neut # (Auto) 5500 (2656-8945) /uL Lymph # (Auto) 800 L (6197-3102) /uL Wetzel # (Auto) 400 (0-900) /uL Eos # (Auto) 200 (0-450) /uL Baso # (Auto) 0 (0-100) /uL Sodium 141 (137-145) mmol/L Potassium 3.6 (3.4-5.1) mmol/L Chloride 105 (98-107) mmol/L Carbon Dioxide 25 (22-32) mmol/L BUN 8 L (9-20) mg/dL Creatinine 0.60 L (0.66-1.25) mg/dL Estimated GFR > 60.0 (>60) mL/min BUN/Creatinine Ratio 13.3 (6-22) Glucose 126 H (70-100) mg/dL Lactate 1.5 (0.7-2.1) mmol/L Calcium 9.0 (8.4-10.2) mg/dL Total Bilirubin 0.7 (0.2-1.3) mg/dL AST 18 (17-59) IU/L ALT 30 (21-72) IU/L Alkaline Phosphatase 74 (38-126) U/L Total Protein 7.2 (6.3-8.2) g/dL Albumin 4.3 (3.5-5.0) g/dL Globulin 2.9 (1.7-4.1) g/dL Albumin/Globulin Ratio 1.5 (1.0-2.8) Nasal Screen MRSA (PCR) (Negative) Chlamy pneumoniae PCR (Not Detect) Adenovirus (PCR) (Not Detect) B.parapertussis DNA PCR (Not Detect) Coronavirus OC43 (PCR) (Not Detect) Coronavirus HKU1 (PCR) (Not Detect) Coronavirus 229E (PCR) (Not Detect) Coronavirus NL63 (PCR) (Not Detect) Human Metapneumovir PCR (Not Detect) Influenza Type A (PCR) (Not Detect) Influenza Type B (PCR) (Not Detect) M. pneumoniae (PCR) (Not Detect) Parainfluenza 1 (PCR) (Not Detect) Parainfluenza 2 (PCR) (Not Detect) Parainfluenza 3 (PCR) (Not Detect) Parainfluenza 4 (PCR) (Not Detect) RSV (PCR) (Not Detect) Entero/Rhino (PCR) (Not Detect) 04/27/19 04/27/19 Range/Units 12:05 15:10 WBC (4.5-11.0) X10^3/uL RBC (4.5-5.9) X10^6/uL Hgb (13.5-17.5) g/dL Hct (41-53) % MCV (80-100) fL MCH (26-34) PG MCHC (30-36) % RDW (11.6-14.8) % Plt Count (150-400) X10^3/uL Neut % (Auto) (50-75) % Lymph % (Auto) (25-40) % Wetzel % (Auto) (3-14) % Eos % (Auto) (2-4) % Baso % (Auto) (0-2) % Neut # (Auto) (2122-9741) /uL Lymph # (Auto) (5114-3101) /uL Wetzel # (Auto) (0-900) /uL Eos # (Auto) (0-450) /uL Baso # (Auto) (0-100) /uL Sodium (137-145) mmol/L Potassium (3.4-5.1) mmol/L Chloride (98-107) mmol/L Carbon Dioxide (22-32) mmol/L BUN (9-20) mg/dL Creatinine (0.66-1.25) mg/dL Estimated GFR (>60) mL/min BUN/Creatinine Ratio (6-22) Glucose (70-100) mg/dL Lactate (0.7-2.1) mmol/L Calcium (8.4-10.2) mg/dL Total Bilirubin (0.2-1.3) mg/dL AST (17-59) IU/L ALT (21-72) IU/L Alkaline Phosphatase (38-126) U/L Total Protein (6.3-8.2) g/dL Albumin (3.5-5.0) g/dL Globulin (1.7-4.1) g/dL Albumin/Globulin Ratio (1.0-2.8) Nasal Screen MRSA (PCR) Negative for mrsa (Negative) Chlamy pneumoniae PCR Not detected (Not Detect) Adenovirus (PCR) Not detected (Not Detect) B.parapertussis DNA PCR Not detected (Not Detect) Coronavirus OC43 (PCR) Not detected (Not Detect) Coronavirus HKU1 (PCR) Not detected (Not Detect) Coronavirus 229E (PCR) Not detected (Not Detect) Coronavirus NL63 (PCR) Not detected (Not Detect) Human Metapneumovir PCR Not detected (Not Detect) Influenza Type A (PCR) Not detected (Not Detect) Influenza Type B (PCR) Not detected (Not Detect) M. pneumoniae (PCR) Not detected (Not Detect) Parainfluenza 1 (PCR) Not detected (Not Detect) Parainfluenza 2 (PCR) Not detected (Not Detect) Parainfluenza 3 (PCR) Not detected (Not Detect) Parainfluenza 4 (PCR) Not detected (Not Detect) RSV (PCR) Not detected (Not Detect) Entero/Rhino (PCR) Detected H (Not Detect) Imaging Data Chest x-ray: Radiologist's impression: [address] [address] XRay Report Signed Patient: Irene Guzman LMR#: [id number] : 1985Acct:[id number] Age/Sex: 34 / MDate of Service: 04/27/19 Loc: ED Accession Number: [id number] Procedure: XR chest 2V Ordering Provider: Magaly Bernstein D.O. PROCEDURE: XR CHEST 2V INDICATIONS: shortness of breath TECHNIQUE: 2 views of the chest were acquired. COMPARISON: [facility], , XR CHEST 2V, 07/09/2018, 17:46. FINDINGS: Surgical changes and devices: None. Lungs and pleura: Lungs are clear. No pleural effusions or pneumothorax. Mediastinum: Mediastinal contours are normal. Heart size is normal. Bones and chest wall: No suspicious bony abnormalities. Soft tissues appear unremarkable. IMPRESSION: No acute cardiopulmonary pathology. Dictated by: Barrington Barron M.D. on 04/27/2019 at 10:37 Approved by: Barrington Barron M.D. on 04/27/2019 at 10:37 [facility] Narrative Medical decision making narrative: Patient comes in wheezing, slightly tachycardic. Patient received DuoNeb and 2 albuterol [facility] He received 3 additional albuterol here in the department. Patient was improving but then started to require oxygen via nasal cannula. Wheezing has improved he feels a little bit more comfortable but he is requiring oxygen. Chest x-ray was negative, lab work is otherwise normal. Patient has history of asthma. With Dr. Tse who accepts for admission, she requests respiratory panel which was positive for entero/rhinovirus. Patient denies any recent nasal congestion. While patient was here his mother arrived and smelled very strongly of smoke from the smoke lodge. Patient's wheezing worsened and his oxygenation requirements increased to 4.5 L. On recheck he is diffusely wheezy and was given 2 additional albuterol. Patient improved and was transferred to inpatient side. Discharge Plan Departure Patient Disposition: Admitted As Inpatient Clinical Impression: Asthma exacerbation Discharge Date/Time: 04/27/19 14:51 Interventions: ED Discharge Assessment Last Done: 04/27/19 14:15 Admit Date/Time: 04/27/19 12:14 Admit Provider: Eda Tse
[2019-04-27] MEDS: MAGNESIUM SULFATE 2 GM/50 ML PIGGYBACK IV (10:29)
[2019-04-27] MEDS: methylPREDNISolone 125 MG/2 ML VIAL IV (10:29)
[2019-04-27] MEDS: ALBUTEROL 2.5 MG/3 ML NEB (ADULT) 7.5 MG INH (10:34)
[2019-04-27 10:35] LABS: Add Manual Diff / Slide Review NO; Basophils Absolute Auto 0 /uL (0-100); Basophils Percent Auto 0.5 % (0-2); Eosinophils Absolute Auto 200 /uL (0-450); Eosinophils Percent Auto 3.5 % (2-4); Hematocrit 41.5 % (41-53); Hemoglobin 14.4 g/dL (13.5-17.5); Lymphocytes Absolute Auto 800 /uL (1100-4500); Mean Corpuscular HGB Conc 34.7 % (30-36); Mean Corpuscular Hemoglobin 29.1 PG (26-34); Mean Corpuscular Volume 84.1 fL (80-100); Monocytes Absolute Auto 400 /uL (0-900); Monocytes Percent Auto 5.2 % (3-14); Neutrophils Absolute Auto 5500 /uL (1500-7000); Neutrophils Percent Auto 79.8 % (50-75); Platelet Count 191 X10^3/uL (150-400); Red Blood Cell Count 4.94 X10^6/uL (4.5-5.9); Red Cell Distribution Width 13.4 % (11.6-14.8); White Blood Cell Count 6.9 X10^3/uL (4.5-11.0)
[2019-04-27 10:47] LABS: Lactate (Lactic Acid) 1.5 mmol/L (0.7-2.1)
[2019-04-27 10:48] LABS: Alanine Aminotransferase 30 IU/L (21-72); Albumin 4.3 g/dL (3.5-5.0); Albumin Globulin Ratio 1.5 (1.0-2.8); Alkaline Phosphatase 74 U/L (38-126); Aspartate Aminotransferase 18 IU/L (17-59); BUN Creatinine Ratio 13.3 (6-22); Bilirubin Total 0.7 mg/dL (0.2-1.3); Blood Urea Nitrogen 8 mg/dL (9-20); Carbon Dioxide 25 mmol/L (22-32); Chloride 105 mmol/L (98-107); Estimated Glomerular Filt Rate > 60.0 mL/min (>60); Globulin 2.9 g/dL (1.7-4.1); Glucose 126 mg/dL (70-100); HEMOLYSIS < 15 (0-50); Potassium 3.6 mmol/L (3.4-5.1); Sodium 141 mmol/L (137-145); Total Protein 7.2 g/dL (6.3-8.2)
--- NOTE | 2019-04-27 11:26 | PC.NURSE ---
RT has evaluated Patient. Pt is placed on NC at 2l for sats that continue to drop on RA to 88%
[2019-04-27 13:40] LABS: Adenovirus Not Detected (Not Detect); Bordetella pertussis Not Detected (Not Detect); Chlamydophila pneumoniae Not Detected (Not Detect); Coronavirus 229E Not Detected (Not Detect); Coronavirus HKU1 Not Detected (Not Detect); Coronavirus NL 63 Not Detected (Not Detect); Coronavirus OC43 Not Detected (Not Detect); Human Metapneumovirus Not Detected (Not Detect); Human Rhinovirus/Enterovirus Detected (Not Detect); Influenza A Not Detected (Not Detect); Influenza B Not Detected (Not Detect); Mycoplasma pneumoniae Not Detected (Not Detect); Parainfluenza Virus 1 Not Detected (Not Detect); Parainfluenza Virus 2 Not Detected (Not Detect); Parainfluenza Virus 3 Not Detected (Not Detect); Parainfluenza Virus 4 Not Detected (Not Detect); Respiratory Syncytial Virus Not Detected (Not Detect)
[2019-04-27] MEDS: ALBUTEROL 2.5 MG/3 ML NEB (ADULT) INH (13:48)
--- NOTE | 2019-04-27 13:59 | RT ---
Peak flow meter issued to Mr. Guzman. Initial PEFR (after 3 EMS nebs in rig): 240 LPM After 3 alb (cont) alb nebs: 240 LPM Pred PEFR per age/height/gender) 640
--- NOTE | 2019-04-27 15:06 | PC.ADMIT ---
Admission Note: Pt arrived to room 106 via stretcher from ER at 1450. Walked into room independently, steady on feet. Mildly short of breath with RR in the upper 20s, reports feeling much better. On 3L oxygen NC on arrival with sats 90%; oxygen increased to 4L NC with sats then increasing to 94-95%. Placed in droplet isolation for rhinovirus. Denies pain. NSR in the 80s on monitor. Declines need to lock up any valuables. Glasses in place and clothing placed at bedside. Oriented to room and to bed/tv/call light controls. Instructed to use call for assistance as needed, acknowledged understanding. Call light within reach. The patient,Irene Guzman,34 y/o, was given written information regarding hospital policies, unit procedures and contact persons. Patient's smoking status: Current every day smoker. Vital Signs - 8 hr 04/27/19 10:00 04/27/19 10:30 04/27/19 11:00 Temperature 97.7 F Pulse Rate 94 H 66 80 Respiratory Rate 21 31 H 21 Blood Pressure 151/68 H Blood Pressure [Right Arm] 124/75 130/54 L Pulse Oximetry 93 96 92 04/27/19 11:30 04/27/19 12:00 04/27/19 12:30 Temperature Pulse Rate 100 H 82 93 H Respiratory Rate 27 H 28 H 30 H Blood Pressure Blood Pressure [Right Arm] 134/50 L 124/56 L 138/61 Pulse Oximetry 91 90 L 88 L 04/27/19 13:00 04/27/19 13:30 04/27/19 13:54 Temperature Pulse Rate 77 72 90 Respiratory Rate 32 H 30 H 28 H Blood Pressure Blood Pressure [Right Arm] 130/72 134/60 Pulse Oximetry 90 L 90 L 04/27/19 14:00 Temperature Pulse Rate 76 Respiratory Rate 19 Blood Pressure Blood Pressure [Right Arm] 132/61 Pulse Oximetry 94
[2019-04-27] MEDS: methylPREDNISolone 125 MG/2 ML VIAL 60 MG IV ×2 (15:35→21:59)
[2019-04-27] MEDS: LORATADINE 10 MG TABLET PO (15:35)
[2019-04-27] MEDS: FAMOTIDINE 20 MG/50 ML PIGGYBACK 200 MG IV (15:42)
[2019-04-27] MEDS: ALBUTEROL/IPRATROPIUM 3 ML AMPUL INH ×2 (16:20→20:28)
--- NOTE | 2019-04-27 19:41 | PM.HP.1 ---
History of Present Illness Date Patient Seen: 04/27/19 Time Patient Seen: 19:41 Chief complaint: asthma exacerbation Narrative: Mr. Irene Guzman is a 34-year-old male patient with a history of asthma who presents to the ER with acute shortness of breath. The patient states that his shortness of breath began last night he was debating on presentation to the ER at that time elected to wait and be seen at a medical clinic and [place]. The patient was diagnosed with asthma in September and prescribed albuterol inhaler. He has been instructed on use the inhaler and spacer. The patient has been using his albuterol without relief and was reportedly given a 2nd inhaler yesterday. The patient has additional complaints of coughing that be gain yesterday along with subjective fevers and headache. The patient is a past heavy smoker for approximately 20 years smoking between 1/2 pack to 2 packs per day depending on his activities and continues to smoke marijuana once weekly. He has no prior hospitalizations or need for airway support. Denies nasal congestion or sore throat. He denies chest pain or palpitations. He describes fullness in his stomach but no complaints of nausea vomiting, diarrhea or constipation. Reports no urinary difficulties. He denies neck back or joint pains and is independent in ADLs. Upon arrival in the ER the patient was afebrile with a temperature of 97.7?, [place] [address], heart rate 94, respirations 21 saturating 93% on room air. Patient presented with increased work of breathing and was started multiple nebulizer treatments in the ER and also received magnesium and methylprednisolone. Chest x-ray was taken which shows no acute cardiopulmonary disease. On laboratory evaluation has a normal white count at 6.9, hemoglobin of 14.4 and hematocrit of 41.5 with platelets of a 191. He does have positive serology for rhino virus and a negative lactate of 1.5. His chemistries are within normal limits has a nonfasting glucose of 126. His LFTs are within normal range. Patient History Medical History Mild persistent asthma (Acute) Healthy adult (Acute) Surgical History No pertinent past surgical history (Acute) Social History (Updated 04/27/19 @ 10:26 by Magaly Bernstein DO) household members: none Smoking Status: Former smoker alcohol intake: current substance use type: marijuana Family & Social History Social History: household members none Prior Living Arrangements RV Safety & Behavioral: Feels Safe in Current Yes Environment Been Physically Hurt or No Threatened By a Person Suicidal Ideation Description None Suicide Plan Description No Plan Tobacco & Substance use: Tobacco type cigarettes,cannabis/marijuana Smoking Status Former smoker alcohol intake current alcohol intake frequency a few times a week Substance Use Type marijuana Comment: The patient is single presently lives in a camper with his mother. They cook over a campfire. He describes his father as in good health and his mother has osteoarthritis and fibromyalgia. He has 1 sibling who is in good health. 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 Smoking: Patient smoked between 1/2 to 2 packs per day for 20 years quitting cigarettes 5 years ago. Alcohol: Patient reports consuming an occasional beer. Substance use: Patient denies use of recreational pharmaceuticals, endorses smoking marijuana once weekly. Advanced directives: In direct discussion with the patient he states his wishes to be FULL CODE and designates his mother to be his surrogate decision maker. PCP: [facility] Med[facility] Home Medications Medication Instructions Recorded Confirmed Type beclomethasone dipropionate [Qvar 1 puff INHALATION BID #10.6 gram 11/14/18 04/27/19 Rx RediHaler] albuterol sulfate [ProAir HFA] 2 puff INHALATION Q4H PRN 04/27/19 04/27/19 History Allergies Allergy/AdvReac Type Severity Reaction Status Date / Time naproxen [NAPROXEN] Allergy Severe Wheezing Verified 04/27/19 10:21 Review of Systems Review of Systems All systems reviewed & are unremarkable except as noted in HPI and below Exam Vital Signs (past 8 hours): - 04/27/19 12:00 04/27/19 12:30 04/27/19 13:00 Pulse Rate 82 93 H 77 Respiratory Rate 28 H 30 H 32 H Blood Pressure Blood Pressure [Right Arm] 124/56 L 138/61 130/72 Pulse Oximetry 90 L 88 L 90 L 04/27/19 13:30 04/27/19 13:54 04/27/19 14:00 Pulse Rate 72 90 76 Respiratory Rate 30 H 28 H 19 Blood Pressure Blood Pressure [Right Arm] 134/60 132/61 Pulse Oximetry 90 L 94 04/27/19 14:56 04/27/19 18:16 Pulse Rate 88 Respiratory Rate 20 Blood Pressure 139/71 Blood Pressure [Right Arm] Pulse Oximetry 96 94 Oxygen Delivery Method Nasal Cannula Oxygen Flow Rate 4.5 Narrative Exam Narrative: GENERAL APPEARANCE: well developed, obese male with BMI 39.6 with moderate shortness of breath. HEAD: Normocephalic, atraumatic, no scalp lesions. EYES: Piercing right eyebrow, pupils equal, round, reactive to light and accommodation, sclera non-icteric, extraocular movement intact without nystagmus. EARS: normal external structures, no ear pain NOSE: sinuses non tender to percussion, no rhinorrhea ORAL CAVITY: mucosa moist without lesions or exudate, palate normal, tongue in midline. THROAT: normal, no erythema, no exudate, posterior pharynx normal, uvula midline. NECK/THYROID: neck supple, no jugular venous distention, no carotid bruit, no thyromegaly, trachea midline. LYMPH NODES: no cervical or supraclavicular lymphadenopathy. SKIN: warm and dry, no suspicious lesions, no rashes, good turgor. HEART: regular rate and rhythm, S1-S2 without murmur, no rubs or gallops, brisk capillary refill, no edema LUNGS: Expiratory wheezing in all abarca, nonproductive cough with deep inspiration, 4-5 word dyspnea. CHEST: Symmetrical movement, no accessory muscle use, no pain to AP and lateral compression. ABDOMEN: Soft, no distention, no epigastric or abdominal tenderness on palpation, no guarding or peritoneal signs, no organomegaly, active bowel tones. BACK: Normal curvature, nontender to palpation. EXTREMITIES: moves all extremities, strength is 5/5 and symmetrical, no deformities or joint effusions. NEUROLOGIC: AAO x4, no focal neurologic deficits, motor strength normal upper and lower extremities, sensory exam intact to light touch. PSYCH: alert, cognitive function intact, good eye contact, appropriate with stable behavior Objective Labs Result Diagrams: 04/27/19 10:20 04/27/19 10:20 Labs: Laboratory Results - last 24 hr 04/27/19 04/27/19 04/27/19 10:20 10:20 10:20 WBC 6.9 RBC 4.94 Hgb 14.4 Hct 41.5 MCV 84.1 MCH 29.1 MCHC 34.7 RDW 13.4 Plt Count 191 Neut % (Auto) 79.8 H Lymph % (Auto) 11.0 L [place] % (Auto) 5.2 Eos % (Auto) 3.5 Baso % (Auto) 0.5 Neut # (Auto) 5500 Lymph # (Auto) 800 L [place] # (Auto) 400 Eos # (Auto) 200 Baso # (Auto) 0 Sodium 141 Potassium 3.6 Chloride 105 Carbon Dioxide 25 BUN 8 L Creatinine 0.60 L Estimated GFR > 60.0 BUN/Creatinine Ratio 13.3 Glucose 126 H Lactate 1.5 Calcium 9.0 Total Bilirubin 0.7 AST 18 ALT 30 Alkaline Phosphatase 74 Total Protein 7.2 Albumin 4.3 Globulin 2.9 Albumin/Globulin Ratio 1.5 Nasal Screen MRSA (PCR) Chlamy pneumoniae PCR Adenovirus (PCR) B.parapertussis DNA PCR Coronavirus OC43 (PCR) Coronavirus HKU1 (PCR) Coronavirus 229E (PCR) Coronavirus NL63 (PCR) Human Metapneumovir PCR Influenza Type A (PCR) Influenza Type B (PCR) M. pneumoniae (PCR) Parainfluenza 1 (PCR) Parainfluenza 2 (PCR) Parainfluenza 3 (PCR) Parainfluenza 4 (PCR) RSV (PCR) Entero/Rhino (PCR) 04/27/19 04/27/19 12:05 15:10 WBC RBC Hgb Hct MCV MCH MCHC RDW Plt Count Neut % (Auto) Lymph % (Auto) [place] % (Auto) Eos % (Auto) Baso % (Auto) Neut # (Auto) Lymph # (Auto) [place] # (Auto) Eos # (Auto) Baso # (Auto) Sodium Potassium Chloride Carbon Dioxide BUN Creatinine Estimated GFR BUN/Creatinine Ratio Glucose Lactate Calcium Total Bilirubin AST ALT Alkaline Phosphatase Total Protein Albumin Globulin Albumin/Globulin Ratio Nasal Screen MRSA (PCR) Negative for mrsa Chlamy pneumoniae PCR Not detected Adenovirus (PCR) Not detected B.parapertussis DNA PCR Not detected Coronavirus OC43 (PCR) Not detected Coronavirus HKU1 (PCR) Not detected Coronavirus 229E (PCR) Not detected Coronavirus NL63 (PCR) Not detected Human Metapneumovir PCR Not detected Influenza Type A (PCR) Not detected Influenza Type B (PCR) Not detected M. pneumoniae (PCR) Not detected Parainfluenza 1 (PCR) Not detected Parainfluenza 2 (PCR) Not detected Parainfluenza 3 (PCR) Not detected Parainfluenza 4 (PCR) Not detected RSV (PCR) Not detected Entero/Rhino (PCR) Detected H Assessment & Plan Assessment & Plan narrative: This is a 34-year-old male patient with asthma diagnosed in September worsening over the last 2 days and seen in clinic and subsequently presents to the ER with asthma exacerbation. 1. Acute asthma exacerbation, present on arrival. -patient with history of asthma diagnosed in September on albuterol inhaler with increasing use, seen in clinic provided beclomethasone inhaler yesterday. -patient with marked wheezing, symptoms of cough and subjective fever starting yesterday, exacerbation secondary to her mental irritants and rhino virus. -patient with normal white count of 6.9, lactic acid of 1.5, Chest x-ray shows no active cardiopulmonary processes. -ER treatment included multiple nebulizers, magnesium sulfate IV 2 g, methylprednisolone 125 mg IV. His also received loratadine and famotidine. -respiratory therapy to consult and treat, oxygen as needed to keep saturation greater than 90%. -albuterol nebulizer every 2 hours as needed. -continue methylprednisolone 60 mg every 6 hours. -will continue to monitor respiratory status closely. Ptient will be on droplet precautions. 2. Obesity, BMI 39.6, stable -patient is obese without complications of hypertension. -historic labs reviewed with the patient has elevated glucose likely nonfasting, will obtain hemoglobin A1c to assess for glucose intolerance. -dietary consult. The patient is admitted to the hospital for asthma exacerbation with continued significant wheezing despite multiple medications and nebulizer treatments and risk for adverse events or complications. He is admitted as an inpatient with expected length of stay to be greater than 2 midnights. Scores GCS [place] coma scale eye opening: Spontaneous [place] coma scale verbal response: Orientated Món[place] coma scale motor response: Obey commands [place] coma scale total score: 15 Quality VTE Deep Vein Thrombosis/Pulmonary Embolism Present on Admission: No
[2019-04-27] MEDS: ACETAMINOPHEN 325 MG TABLET 650 MG PO (20:24)
[2019-04-27] MEDS: SODIUM CHLORIDE 0.9% 1,000 ML 75 ML IV (21:48)
[2019-04-28] VITALS (15 sets, daily range): BP systolic 120–145; BP diastolic 60–83; PULSE 67–98; RESP 18–36; TEMP 36.7–37; O2SAT 91–95; BMI 39.5
[2019-04-28] MEDS: ALBUTEROL/IPRATROPIUM 3 ML AMPUL INH ×4 (00:04→18:55)
--- NOTE | 2019-04-28 01:03 | PC.NURSE ---
Yard Goods Salesperson Note: 0020: Awake, RT at bedside giving neb tx. Respirations unlabored. Vital signs stable. IV in place in lt AC with NS infusing at 75cc/hr. HOB elevated 45 degrees.
[2019-04-28 04:58] LABS: Hemoglobin A1C% w Est Avg Glu 5.3 % (4.0-6.0)
[2019-04-28 06:04] LABS: Add Manual Diff / Slide Review NO; Basophils Absolute Auto 0 /uL (0-100); Basophils Percent Auto 0.2 % (0-2); Eosinophils Absolute Auto 0 /uL (0-450); Hematocrit 43.5 % (41-53); Hemoglobin 14.9 g/dL (13.5-17.5); Lymphocytes Absolute Auto 700 /uL (1100-4500); Lymphocytes Percent Auto 6.4 % (25-40); Mean Corpuscular HGB Conc 34.3 % (30-36); Mean Corpuscular Hemoglobin 28.9 PG (26-34); Mean Corpuscular Volume 84.1 fL (80-100); Monocytes Absolute Auto 200 /uL (0-900); Neutrophils Absolute Auto 10000 /uL (1500-7000); Neutrophils Percent Auto 91.4 % (50-75); Platelet Count 241 X10^3/uL (150-400); Red Blood Cell Count 5.17 X10^6/uL (4.5-5.9); Red Cell Distribution Width 13.4 % (11.6-14.8); White Blood Cell Count 10.9 X10^3/uL (4.5-11.0)
[2019-04-28 06:10] LABS: BUN Creatinine Ratio 16.7 (6-22); Blood Urea Nitrogen 10 mg/dL (9-20); Calcium 9.2 mg/dL (8.4-10.2); Carbon Dioxide 24 mmol/L (22-32); Chloride 104 mmol/L (98-107); Estimated Glomerular Filt Rate > 60.0 mL/min (>60); Glucose 140 mg/dL (70-100); HEMOLYSIS < 15 (0-50); Sodium 138 mmol/L (137-145)
[2019-04-28] MEDS: methylPREDNISolone 125 MG/2 ML VIAL 60 MG IV ×3 (06:20→22:14)
[2019-04-28 07:08] LABS: Procalcitonin < 0.05 ng/mL (<0.5)
[2019-04-28] MEDS: LORATADINE 10 MG TABLET PO (08:33)
[2019-04-28] MEDS: ACETAMINOPHEN 325 MG TABLET 650 MG PO ×2 (08:33→13:30)
--- NOTE | 2019-04-28 09:32 | PC.NURSE ---
AM NOTE - pt awakens easily for breakfast, some resting sob w/ speech, rr 28, bs dim throughout with inspir/expir wheezes, ra 93%, denies chest pain, some headache discomfort this am, given 650mg po tylenol.
--- NOTE | 2019-04-28 09:36 | PC.NURSE ---
Addendum entered by Caridad Bishop R.N. 04/28/19 14:08: PAIN/TSF - given 650mg po tylenol for headache discomfort, pt tsf to room 203, has all belongings, including cell phone, wallet and glasses, bag w/clothing, assisted to wc and aviculturist/RN tamra escorted upstairs, report provided. Addendum entered by Caridad Bishop R.N. 04/28/19 13:03: RESP - ADDENUM/CORRECTION - pt sat 93% 4L. Original Note: AM NOTE - easily awakens, states breathing has improved since admission with tmts, sob at rest, shallow, unlabored at 26-28, bs dim throughout, inspir/expir wheezes throughout, ra 93%, headache discomfort, occassional non productive cough, given 650mg po tylenol.
--- NOTE | 2019-04-28 11:53 | CM.IDA ---
Initial DCP Assessment Note: Pt is a 34 yo male, resident of [facility]. Pt here observation status for acute exacerbation of asthma and rhino virus. PCP: [facility] Payer: Medicaid/ [employer] Pt discussed in multidisciplinary rounds, pt will be DC today, home w/ close f/u at the [facility]. No SW needs expected for this pt, [place] DREA Mclean agrees, pt has no needs and will transport home later today w/friends or family. This GIS ANALYST DEVELOPER available in case any DC needs or concerns arise. GUS El
--- NOTE | 2019-04-28 12:29 | DIET.PN ---
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 Lives in [facility] with mom, denies mold in [facility]. Cooks over wood fire and smokes cigarettes. Pt's neighbor/friend was in pt room and encouraged pt to help him forage food and working in the garden. Pt eats meals at work regularly, reports being food secure though does shop at food bank. 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 Interventions: Educated pt on [place] My[employer] c handout, encouraging traditional foods including wild game, seafood, plants, berries, and intentional movement in nature. Encouraged limiting refined carbohydrates by replacing with complex carbs, more vegetables, fruits and healthy fats. Suggested snack of nuts and fruit or putting guacamole on burger at work instead of roman and cheese. Energy Goals: 2800kcal or less, 100g PRO Monitoring/Evaluations: recc referral to outpatient RD if service not available through [facility]. Consider lower carb/higher MUFA/PUFA fat diet if COPD suspected to reduce respiratory quotient.
--- NOTE | 2019-04-28 13:36 | P.PN_ITS ---
Subjective Date Patient Seen: 04/28/19 Interval history: Irene Guzman is a 34-year-old male with a past medical history significant for recently diagnosed asthma in September 2018 who presented to the ED with prog ressive worsening shortness of breath and wheezing due to acute asthma exacerbation. The patient is resting in bed comfortably and in no acute distress. He reports he feels significantly better than yesterday. Discussed asthma and management in detail. He reports he was diagnosed in September 2018. He is on albuterol only and has never been on any other inhaler. Discussed an asthma action plan which he has never been given and will have RT provide him with one. He endorses mild nasal congestion. He is off oxygen satting mid 90's on room air. He has no other complaints and denies headache, sore throat, wheezing (although scattered wheeze on exam), shortness of breath, chest pain, abdominal pain, nausea, vomiting, fever, chills, dysuria, diarrhea or constipation. He is voiding and eliminating without difficulty. He is up ambulating independently. Exam Vital Signs (past 8 hours): - 04/28/19 07:00 04/28/19 07:45 04/28/19 10:00 Temperature 98.2 F Pulse Rate 67 Respiratory Rate 33 H Blood Pressure 122/60 Pulse Oximetry 93 92 94 04/28/19 12:02 04/28/19 12:33 Temperature 98.6 F Pulse Rate 97 H 76 Respiratory Rate 27 H 22 Blood Pressure 144/67 H Pulse Oximetry 95 95 Oxygen Delivery Method Nasal Cannula Oxygen Flow Rate 4 Narrative Exam Narrative: General: Young obese gentleman lying in bed and in no acute distress, well- developed, well-nourished, mildly withdrawn and not very interactive but appropriate. HEENT: Normocephalic, atraumatic. External ears without defect. Pupils equal, round, and reactive to light. Anicteric sclerae, moist conjunctivae, and no lid lag. Neck: Supple with full range of motion. No lymphadenopathy or thyromegaly. Cardiovascular: Regular rate and rhythm without murmurs, rubs, or gallops appreciated. Pulmonary: Clear to auscultation bilaterally with scattered wheezes throughout. No crackles or rhonchi. Normal respiratory effort with no use of accessory muscles. Abdomen: Soft, obese, nontender, nondistended. No hepatosplenomegaly or masses appreciated. Extremities: No clubbing, cyanosis, or edema. Skin: Normal temperature, turgor, and texture; no rash, ulcers, or subcutaneous nodules appreciated. Neurological: Cranial nerves grossly intact. Normal muscle strength, tone, and bulk. Reflexes, coordination, and sensory function within normal limits. No known gait impairment. Psychiatric: Normal mood and flat affect and withdrawn. Alert and oriented to person, place, and time. Objective Labs Result Diagrams: 04/28/19 05:10 04/28/19 05:10 Labs: Laboratory Results - last 24 hr 04/27/19 04/27/19 04/27/19 10:20 12:05 15:10 WBC RBC Hgb Hct MCV MCH MCHC RDW Plt Count Neut % (Auto) Lymph % (Auto) [place] % (Auto) Eos % (Auto) Baso % (Auto) Neut # (Auto) Lymph # (Auto) [place] # (Auto) Eos # (Auto) Baso # (Auto) Sodium Potassium Chloride Carbon Dioxide BUN Creatinine Estimated GFR BUN/Creatinine Ratio Glucose Hemoglobin A1c 5.3 Calcium Procalcitonin Nasal Screen MRSA (PCR) Negative for mrsa Chlamy pneumoniae PCR Not detected Adenovirus (PCR) Not detected B.parapertussis DNA PCR Not detected Coronavirus OC43 (PCR) Not detected Coronavirus HKU1 (PCR) Not detected Coronavirus 229E (PCR) Not detected Coronavirus NL63 (PCR) Not detected Human Metapneumovir PCR Not detected Influenza Type A (PCR) Not detected Influenza Type B (PCR) Not detected M. pneumoniae (PCR) Not detected Parainfluenza 1 (PCR) Not detected Parainfluenza 2 (PCR) Not detected Parainfluenza 3 (PCR) Not detected Parainfluenza 4 (PCR) Not detected RSV (PCR) Not detected Entero/Rhino (PCR) Detected H 04/28/19 04/28/19 04/28/19 05:10 05:10 05:10 WBC 10.9 D RBC 5.17 Hgb 14.9 Hct 43.5 MCV 84.1 MCH 28.9 MCHC 34.3 RDW 13.4 Plt Count 241 Neut % (Auto) 91.4 H Lymph % (Auto) 6.4 L [place] % (Auto) 2.0 L Eos % (Auto) 0.0 L Baso % (Auto) 0.2 Neut # (Auto) 33535 H Lymph # (Auto) 700 L [place] # (Auto) 200 Eos # (Auto) 0 Baso # (Auto) 0 Sodium 138 Potassium 4.0 Chloride 104 Carbon Dioxide 24 BUN 10 Creatinine 0.60 L Estimated GFR > 60.0 BUN/Creatinine Ratio 16.7 Glucose 140 H Hemoglobin A1c Calcium 9.2 Procalcitonin < 0.05 Nasal Screen MRSA (PCR) Chlamy pneumoniae PCR Adenovirus (PCR) B.parapertussis DNA PCR Coronavirus OC43 (PCR) Coronavirus HKU1 (PCR) Coronavirus 229E (PCR) Coronavirus NL63 (PCR) Human Metapneumovir PCR Influenza Type A (PCR) Influenza Type B (PCR) M. pneumoniae (PCR) Parainfluenza 1 (PCR) Parainfluenza 2 (PCR) Parainfluenza 3 (PCR) Parainfluenza 4 (PCR) RSV (PCR) Entero/Rhino (PCR) Assessment & Plan Assessment & Plan narrative: Irene Guzman is a 34-year-old male with a past medical history significant for recently diagnosed asthma in September 2018 who presented to the ED with progressive worsening shortness of breath and wheezing due to acute asthma exacerbation. 1. Acute asthma exacerbation with hypoxemic respiratory failure, secondary to viral URI and environmental irritants, present on admission. Resolving. -Patient with recently diagnosed asthma in September 2018. He is on an albuterol inhaler only with increasing use, seen in clinic provided beclomethasone inhaler the day prior to admission. 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 -Patient presented with progressive worsening shortness of breath marked wheezing, non-productive cough and subjective fever. [place]. -Initial WBC 6.9, lactic acid of 1.5. -Respiratory PCR positive for rhinovirus. Continue droplet precautions. -Chest x-ray did not demonstrate any acute cardiopulmonary process. -ED treatment included: multiple nebulizers x 6, magnesium sulfate 2g IV, and methylprednisolone 125 mg IV. -Ordered and continue loratadine and famotidine for antihistamine effects. -Continue respiratory therapy evaluation and treatment. Continue duonebs every 4 hours while awake and albuterol nebs every 2 hours as needed for shortness of breath or wheezing. Started glucocorticoid/LABA neb with fluticasone/salmeterol inhaler twice daily. Continue supplemental oxygen as needed to keep saturation greater 88-92% and titrate off as tolerated. Now off oxygen. -Continue methylprednisolone 60 mg every 8 hours today and start prednisone 40 mg daily tomorrow for short burst 3-5 days. -Continue to monitor respiratory status closely. -Educated patient regarding asthma and management. Recommended annual influenza vaccination, pneumococcal vaccination, cessation of marijuana use, and avoidance of ill individuals. -Recommend step up in asthma therapy and expedited referral to pulmonolgy. 2. Acute rhinovirus URI, present on admission. Active. -Respiratory viral PCR positive for rhinovirus. Continue droplet precautions. -Chest x-ray did not demonstrat any acute cardiopulmonary process. -Continue supportive care: IV fluids continued until adequately hydrated then stopped, sudafed 60 mg every 6 hours as needed for congestion, and mucinex 1200 mg twice daily as needed to thin secretions. 3. Morbid obesity, chronic, present on admission. Stable. -BMI 39.6. No history of complications of hypertension, hyperlipidemia, diabetes or metabolic syndrome. -Encourage lifestyle modification including: Diet and exercise. -Dietitian consulted and appreciate recommendations. Disposition: Patient likely to discharge home tomorrow with asthma action plan, step up in therapy and close outpatient follow-up and referral to pulmonology. Quality VTE Deep Vein Thrombosis/Pulmonary Embolism Present on Admission: No
--- NOTE | 2019-04-28 14:36 | PC.NURSE ---
patient transf'd up to rm 203 w/ out oxygen. denies sob. sat 92% on ra. rechecked 20min later 94% on ra.
[2019-04-28] MEDS: guaiFENesin ER 600 MG TAB 1200 MG PO (18:13)
[2019-04-28] MEDS: FLUTICASONE/SALMETEROL 100/50 60 PUFF DISKUS INH (18:51)
[2019-04-29] VITALS: BP 117/62; PULSE 78; RESP 16; TEMP 36.9; O2SAT 94
[2019-04-29 01:06] VITALS: O2SAT 94
--- NOTE | 2019-04-29 04:52 | PC.NURSE ---
Pt slept well overnight, responded good when asked how he slept. Denies pain. Denies SOB at rest or while sleeping. Clarified con't o2 order, pt to remain on con't o2. Denied need for PRN cough medicine. Pt with mild audible inspiratory/expiratory wheezes, on scheduled duonebs.
[2019-04-29 06:00] VITALS: BP 133/80; PULSE 66; RESP 18; TEMP 36.4; O2SAT 90
[2019-04-29 07:40] VITALS: BP 139/73; PULSE 73; RESP 24; TEMP 37.1; O2SAT 94
[2019-04-29] MEDS: guaiFENesin ER 600 MG TAB 1200 MG PO (08:13)
[2019-04-29] MEDS: LORATADINE 10 MG TABLET PO (08:13)
[2019-04-29] MEDS: predniSONE 20 MG TABLET 40 MG PO (08:13)
[2019-04-29] MEDS: ACETAMINOPHEN 325 MG TABLET 650 MG PO (08:14)
[2019-04-29] MEDS: ALBUTEROL/IPRATROPIUM 3 ML AMPUL INH (08:59)
[2019-04-29] MEDS: FLUTICASONE/SALMETEROL 100/50 60 PUFF DISKUS INH (08:59)
[2019-04-29 09:00] VITALS: PULSE 75; RESP 16; O2SAT 93
--- NOTE | 2019-04-29 10:15 | P.DS_ITS ---
History of Present Illness Date Patient Seen: 04/29/19 Time Patient Seen: 10:34 Chief complaint: asthma exacerbation Narrative: Mr. Irene Guzman is a 34-year-old male patient with a history of asthma who presents to the ER with acute shortness of breath. The patient states that his shortness of breath began last night he was debating on presentation to the ER at that time elected to wait and be seen at a medical clinic and [place]. The patient was diagnosed with asthma in September and prescribed albuterol inhaler. He has been instructed on use the inhaler and spacer. The patient has been using his albuterol without relief and was reportedly given a 2nd inhaler yesterday. The patient has additional complaints of coughing that be gain yesterday along with subjective fevers and headache. The patient is a past heavy smoker for approximately 20 years smoking between 1/2 pack to 2 packs per day depending on his activities and continues to smoke marijuana once weekly. H e has no prior hospitalizations or need for airway support. Denies nasal congestion or sore throat. He denies chest pain or palpitations. He describes fullness in his stomach but no complaints of nausea vomiting, diarrhea or constipation. Reports no urinary difficulties. He denies neck back or joint pains and is independent in ADLs. Upon arrival in the ER the patient was afebrile with a temperature of 97.7?, [place] [address], heart rate 94, respirations 21 saturating 93% on room air. Patient presented with increased work of breathing and was started multiple nebulizer treatments in the ER and also received magnesium and methylprednisolone. Chest x-ray was taken which shows no acute cardiopulmonary disease. On laboratory evaluation has a normal white count at 6.9, hemoglobin of 14.4 and hematocrit of 41.5 with platelets of a 191. He does have positive serology for rhino virus and a negative lactate of 1.5. His chemistries are within normal limits has a nonfasting glucose of 126. His LFTs are within normal range. Discharge Providers Date of admission: 04/27/19 12:14 Discharge Date: 04/29/19 Consults: 04/27/19 14:03 Consult to Discharge Planning Routine Comment: 04/27/19 20:17 Consult to Dietitian, Adult Routine Comment: Reason For Exam: Asthma exacerbation, Obesity, BMI 39.6 07/24/19 20:18 Consult to Respiratory Therapy Evaluate & Treat Comment: Physician Instructions: Evaluate and treat Discharge provider: Kb Fragoso MD Summary Discharge Diagnosis: 1. Acute asthma exacerbation with hypoxemic respiratory failure, secondary to viral URI and environmental irritants, present on admission. Resolving. 2. Acute rhinovirus URI, present on admission. Active. 3. Morbid obesity, chronic, present on admission. Stable. Hospital Course: 1. Acute asthma exacerbation with hypoxemic respiratory failure, secondary to viral URI -Patient with recently diagnosed asthma in September 2018. He is on an albuterol inhaler only with increasing use, seen in clinic provided beclomethasone inhaler the day prior to admission. 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 -Patient presented with progressive worsening shortness of breath marked wheezing, non-productive cough and subjective fever. [place]. -Initial WBC 6.9, lactic acid of 1.5. -Respiratory PCR positive for rhinovirus. -Chest x-ray did not demonstrate any acute cardiopulmonary process. -ED treatment included: multiple nebulizers x 6, magnesium sulfate 2g IV, and methylprednisolone 125 mg IV. -Was started on Ranitidine for antihistamine effect, which will be continued at home for 4 weeks. -Treated with Advair and Albuterol. Weaned off oxygen quickly. -Initially on methylprednisolone 60 mg every 8 hours and then prednisone 40 mg daily to extend at home for 5 days. -Educated patient regarding asthma and management. Recommended annual influenza vaccination, pneumococcal vaccination, cessation of marijuana use, and avoidance of ill individuals. -Recommend step up in asthma therapy and expedited referral to pulmonology. 2. Acute rhinovirus URI, present on admission. Active. -CXR negative 3. Morbid obesity, chronic, present on admission. Stable. -BMI 39.6. No history of complications of hypertension, hyperlipidemia, diabetes or metabolic syndrome. -Encourage lifestyle modification including: Diet and exercise. -Dietitian consulted and appreciate recommendations. Disposition: Discharge home today with asthma action plan explained, step up in therapy and close outpatient follow-up and referral to pulmonology. Exam Vital Signs (past 8 hours): - 04/29/19 06:00 04/29/19 07:40 04/29/19 09:00 Temperature 97.6 F 98.8 F Pulse Rate 66 73 75 Respiratory Rate 18 24 16 Blood Pressure 133/80 139/73 Pulse Oximetry 90 L 94 93 Oxygen Delivery Method Room Air Oxygen Flow Rate 0 Narrative Exam Narrative: He is alert and oriented, in no apparent distress. Heart is regular rate and rhythm without murmur. Lungs today have very little wheezing and are mostly clear bilaterally. There is no ankle edema. Objective Labs Result Diagrams: 04/28/19 05:10 04/28/19 05:10 Discharge Plan Discharge Plan Patient Disposition: Home Discharge comment: Please see asthma action plan. Follow up in the next week with the [facility] physician. Discharge Med Rec/Prescriptions Prescriptions: New ranitidine HCl 150 mg Tablet 300 mg PO DAILY Qty: 30 RF: 0 fluticasone propion-salmeterol [Advair Diskus] 250-50 mcg/dose blister with device 1 inhalation INHALATION BID Qty: 60 RF: 0 prednisone 10 mg tablet 20 mg PO BID 5 Days Qty: 20 RF: 0 Continued albuterol sulfate 90 mcg/actuation HFA aerosol inhaler 2 puff inhalation Q4H PRN (Reason: breathing) RF: 0 Qvar RediHaler 80 mcg/actuation HFA aerosol breath activated 1 puff INHALATION BID Qty: 10.6 RF: 0 Provider Discharge Instructions Diet: Regular Activity: Activity as tolerated Visit Report/Discharge Packet Instructions: DI for Asthma -- Adult, Prednisone, Ranitidine, Fluticasone/Salmeterol (By breathing) Discharge Data Attending Provider: Eda Tse Admit Date/Time: 04/27/19 12:14 Quality VTE Deep Vein Thrombosis/Pulmonary Embolism Present on Admission: No
--- NOTE | 2019-04-29 12:21 | PC.NURSE ---
Pt dressed and ready for discharge home with friend/family member present to drive Pt home. IV removed. Scripts electronically sent to [facility] and Pt aware. Went over dc instructions with Pt-discussed d/c meds, time of last dose, reviewed d/c order to follow up and make a discharge plan for asthma with PCP. Reviewed stroke education. Pt denies further questions and was taken out via w/c by [employer] to POV with family and all belongings.
== END 2019-04-29 12:24 | disposition home or self-care (01) | DRG 202 ==
LOC: ED 12:01 → AC 12:48 → ICU 14:08 → AC 04-28 14:01
PROVIDERS: Nurse Practitioner Adult Health; Admitting Provider Internal Medicine; Emergency Provider Emergency Medicine; Visit Provider Internal Medicine
DX: J45.901 Unspecified asthma with (acute) exacerbation (principal); J96.01 Acute respiratory failure with hypoxia; J06.9 Acute upper respiratory infection, unspecified; E66.01 Morbid (severe) obesity due to excess calories; Z68.39 Body mass index [BMI] 39.0-39.9, adult; Z87.891 Personal history of nicotine dependence
CPT/HCPCS: 36415; 71046; 80048; 80053; 83036; 83605; 84145; 85025; 87633; 87797; 94150; 94640; 94762; 96365; 96367; 96375; 99285; J2930; J7613

== ENCOUNTER 2019-12-12 11:05 | Emergency (ER) | payer MEDICAID, OTHER, SELFPAY ==
[2019-04-27 12:17] VITALS: BMI 39.5
[2019-12-12] VITALS (8 sets, daily range): BP systolic 141–158; BP diastolic 73–87; PULSE 68–83; RESP 15–24; TEMP 36.2; O2SAT 92–97
--- NOTE | 2019-12-12 11:21 | PC.NURSE ---
pt placed in reverse room #6
--- NOTE | 2019-12-12 11:46 | DI.RAD.S_ITS ---
PROCEDURE: XR CHEST 2V INDICATIONS: productive cough for 3 days, SOB, wheezing TECHNIQUE: 2 views of the chest were acquired. COMPARISON: [facility], CR, XR CHEST 2V, 04/27/2019, 10:21. FINDINGS: Surgical changes and devices: None. Lungs and pleura: Lungs are clear. No pleural effusions or pneumothorax. Mediastinum: Mediastinal contours are normal. Heart size is normal. Bones and chest wall: No suspicious bony abnormalities. Soft tissues appear unremarkable. IMPRESSION: No acute pulmonary process. Dictated by: Suzette Waldrop M.D. on 12/12/2019 at 13:14 Approved by: Suzette Waldrop M.D. on 12/12/2019 at 13:14
[2019-12-12] MEDS: predniSONE 20 MG TABLET 60 MG PO (12:03)
[2019-12-12] MEDS: ALBUTEROL/IPRATROPIUM 3 ML AMPUL INH (12:11)
--- NOTE | 2019-12-12 12:26 | ED.URI ---
HPI - URI/Sore Throat <ANGELICA Mccall - Last Filed: 12/13/19 00:59> General Chief Complaint: Upper Respiratory Symptoms Stated Complaint: Runny nose,sore throat, low 02 level Time Seen by Provider: 12/12/19 11:22 Source: patient and family Mode of arrival: Ambulatory Limitations: no limitations History of Present Illness HPI Narrative: This is a 34 year male, former smoker, who presents to ED with sore throat, hoarse voice, runny nose, productive cough, short of breath since 3 days ago without fever or body aches. Patient has a history of asthma and was hospitalized in April 2019 for 3 days with asthma exacerbation. Patient denies history of intubation. Patient denies recent travel to foreign countries but his coworkers worst ill from cold symptoms. He works at [employer]. Patient also reports he noticed non itching rash on his upper body and bilateral upper and lower extremities since this morning. Patient was evaluated at [facility] clinic this morning for his symptoms and had flu and strep throat swab tests done with negative findings and was referred to ED for an evaluation and treatment for increased exertional short of breath with low o2 sat as 90%. Patient reports his short of breath is worse with exertion such as ambulation up and down the stairs to use bathroom and has been using increasing albuterol inhaler. Patient also use Advair twice a day as maintenance treatment. Patient denies recent uses of oral steroids. Related Data Home Medications Medication Instructions Recorded Confirmed albuterol sulfate 2 puff INHALATION Q4H PRN 04/27/19 12/12/19 Dayquil Nightquil Combo 1 dose PO PRN PRN 12/12/19 12/12/19 Previous Rx's Medication Instructions Recorded fluticasone propion-salmeterol 1 inhalation INHALATION BID #60 04/29/19 [Advair Diskus] each diphenhydramine HCl [Benadryl 25 - 50 mg PO Q6-8H PRN #20 tab 12/12/19 Allergy] prednisone 50 mg PO DAILY 5 Days #5 tab 12/12/19 ranitidine HCl 150 mg PO BID #14 cap 12/12/19 Allergies Allergy/AdvReac Type Severity Reaction Status Date / Time naproxen [NAPROXEN] Allergy Severe Wheezing Verified 04/27/19 10:21 Review of Systems <ANGELICA Mccall - Last Filed: 12/13/19 00:59> Review of Systems Narrative: General: Denies fever, chills, fatigue, malaise, sweats. HEENT: Denies sinus pain, ear pain, (+) sore throat, difficulty swallowing, dizziness. Respiratory: See HPI Cardiovascular: Denies chest pain, palpitations, orthopnea, edema, calf pain. Gastrointestinal: Denies nausea, vomiting, abdominal pain, diarrhea, constipation, melena. : Denies dysuria, frequency, incontinence, hematuria, urinary retention. Musculoskeletal: Denies weakness, joint pain or bony pain. Skin: Denies (+) rash, skin lesions, or other. Neurologic: Denies weakness, headache, numbness, change in speech, confusion, seizures, incoordination. Psychiatric: No concerning psychosocial issues. 12-point review of systems is negative except for those stated above. Patient History <ANGELICA Mccall - Last Filed: 12/13/19 00:59> Medical History Healthy adult (Acute) Mild persistent asthma (Acute) Surgical History No pertinent past surgical history (Acute) Social History household members: none Smoking Status: Former smoker alcohol intake: current substance use type: marijuana Smoking Status: Former smoker alcohol intake frequency: a few times a week Substance Use Type: marijuana Exam <ANGELICA Mccall - Last Filed: 12/13/19 00:59> Narrative Exam Narrative: GEN: Alert, oriented x 3, well appearing and nourished, and in no acute distress is able to speak a full sentence w/o difficulty. Head: Normal cephalic, atraumatic. No scalp or temporal tenderness, palpable mass or rash. EYES: Pupils are equal, round, and reactive to light and accommodation. Extraocular muscles are intact bilaterally. There is no subconjunctival hemorrhage, exudate and sclera non-icteric. ENT: Bilateral auditory canals and tympanic membranes clear. Hearing grossly intact. Nose without bleeding, purulent discharge or deviation. Facial sinuses nontender to palpate. Mucous membrane moist, no mucosal lesion. Throat without erythema, tonsillar hypertrophy on right side. Hoarse voice. Uvula in midline, airway patent. Neck: Trachea in midline. No JVD, tender to palpate in cervical lymphadenopathy. No masses or thyroid megaly. Supple, non-tender and no meningeal signs. CARDIAC: Normal regular rate and rhythm without murmurs, gallops, or rubs. No chest wall tenderness. No peripheral edema, cyanosis or pallor. Capillary refill is less than 2 seconds. RESPIRATORY: Lungs wheezing through out all lobes. No cough, rales, or rhonchi. No stridor, respiratory distress, increase work of breathing, or accessary muscle used. ABD: Abdomen soft, nontender and non-distended. No guarding or rebound tenderness to palpate. Bowel sounds are normal in all 4 quadrants. There is no palpable masses or organomegaly. EXT: Full painless ROM of all extremities with no loss of sensation, strength, effusion or edema. SKIN: Warm, dry, normal color for patient. Non-pruritic erythematous raised rash in bilateral upper and lower extremities, conflict went raised erythematous rash on upper body. BACK: Nontender without deformity or crepitance. No flank tenderness. NEUROLOGICAL: Alert and oriented to place, time and person. Sensation and motor function intact bilaterally. No facial droops, dysphasia. PSYCHIATRIC: Good judgement and reason, without hallucinations, abnormal affect or abnormal behaviors during the examination. Initial Vital Signs Initial Vital Signs: Vital Signs Temperature 97.2 F L 12/12/19 11:18 Pulse Rate 78 12/12/19 11:18 Respiratory Rate 15 12/12/19 11:18 Blood Pressure 144/87 H 12/12/19 11:18 Pulse Oximetry 97 12/12/19 11:18 <Kya Aaron MD - Last Filed: 12/13/19 06:58> Initial Vital Signs Initial Vital Signs: Vital Signs Temperature 97.2 F L 12/12/19 11:18 Pulse Rate 78 12/12/19 11:18 Respiratory Rate 15 12/12/19 11:18 Blood Pressure 144/87 H 12/12/19 11:18 Pulse Oximetry 97 12/12/19 11:18 Scores <ANGELICA Mccall - Last Filed: 12/13/19 00:59> GCS [place] coma scale eye opening: Spontaneous Mónica coma scale verbal response: Orientated [place] coma scale motor response: Obey commands [place] coma scale total score: 15 Course <Iain Raf-ANGELICA Qureshi - Last Filed: 12/13/19 00:59> Orders Ordered: Discontinued Medications Albuterol (Ventolin) 5 mg INH NOW ONE Stop: 12/12/19 13:18 Last Admin: 12/12/19 13:31 Dose: 5 mg Documented by: ALIREZA Albuterol/Ipratropium (Duoneb) 3 ml INH NOW ONE Stop: 12/12/19 11:46 Last Admin: 12/12/19 12:11 Dose: 3 ml Documented by: ALIREZA Diphenhydramine HCl (Benadryl) 50 mg IV NOW ONE Stop: 12/12/19 14:11 Last Admin: 12/12/19 14:26 Dose: 50 mg Documented by: ADAM Famotidine (Pepcid) 20 mg in 50 mls @ 200 mls/hr IV NOW ONE Stop: 12/12/19 14:24 Last Infusion: 12/12/19 14:47 Dose: 0 mls/hr Documented by: Admin: 12/12/19 14:25 Dose: 200 mls/hr Documented by: ADAM Prednisone (Deltasone) 60 mg PO NOW ONE Stop: 12/12/19 11:46 Last Admin: 12/12/19 12:03 Dose: 60 mg Documented by: ADAM Reevaluation(s) Reevaluation #1: Hayleyb and MDI teaching provided by RT. Pre treatment peak flow: 370 Post treatment peak flow: 460 with improved breathing and short of breath. Predicted peak flow: 650 Time: 12:41 Reevaluation #2: Lung sounds improved but mild wheezing in right lower lobe. Noticed scattered raised erythematous rash increasing in size is and appears as urticaria and reports pruritus. Administering Benadryl and Pepcid via IV. Patient already had prednisone 60 mg upon arrival. Patient ambulated around nursing pruett twice and desatted to 92% and reports short of breath. Time: 14:12 Vital Signs Vital signs: Vital Signs - 8 hr 12/12/19 11:18 12/12/19 12:37 12/12/19 13:00 Temperature 97.2 F L Pulse Rate 78 76 78 Respiratory Rate 15 21 Blood Pressure 144/87 H Blood Pressure [Left Arm] Pulse Oximetry 97 92 12/12/19 13:30 12/12/19 13:35 12/12/19 13:53 Temperature Pulse Rate 72 68 83 Respiratory Rate 18 23 Blood Pressure Blood Pressure [Left Arm] 158/75 H Pulse Oximetry 96 92 12/12/19 13:56 Temperature Pulse Rate 83 Respiratory Rate 24 Blood Pressure Blood Pressure [Left Arm] Pulse Oximetry 92 <Kya Aaron MD - Last Filed: 12/13/19 06:58> Orders Ordered: Discontinued Medications Albuterol (Ventolin) 5 mg INH NOW ONE Stop: 12/12/19 13:18 Last Admin: 12/12/19 13:31 Dose: 5 mg Documented by: ALIREZA Albuterol/Ipratropium (Duoneb) 3 ml INH NOW ONE Stop: 12/12/19 11:46 Last Admin: 12/12/19 12:11 Dose: 3 ml Documented by: ALIREZA Diphenhydramine HCl (Benadryl) 50 mg IV NOW ONE Stop: 12/12/19 14:11 Last Admin: 12/12/19 14:26 Dose: 50 mg Documented by: ADAM Famotidine (Pepcid) 20 mg in 50 mls @ 200 mls/hr IV NOW ONE Stop: 12/12/19 14:24 Last Infusion: 12/12/19 14:47 Dose: 0 mls/hr Documented by: Admin: 12/12/19 14:25 Dose: 200 mls/hr Documented by: ADAM Prednisone (Deltasone) 60 mg PO NOW ONE Stop: 12/12/19 11:46 Last Admin: 12/12/19 12:03 Dose: 60 mg Documented by: ADAM Vital Signs Vital signs: Vital Signs - 8 hr 12/12/19 11:18 12/12/19 12:37 12/12/19 13:00 Temperature 97.2 F L Pulse Rate 78 76 78 Respiratory Rate 15 21 Blood Pressure 144/87 H Blood Pressure [Left Arm] Pulse Oximetry 97 92 12/12/19 13:30 12/12/19 13:35 12/12/19 13:53 Temperature Pulse Rate 72 68 83 Respiratory Rate 18 23 Blood Pressure Blood Pressure [Left Arm] 158/75 H Pulse Oximetry 96 92 12/12/19 13:56 Temperature Pulse Rate 83 Respiratory Rate 24 Blood Pressure Blood Pressure [Left Arm] Pulse Oximetry 92 MDM - URI/Sore Throat <ANGELIAC Mccall - Last Filed: 12/13/19 00:59> Differential Diagnosis Differential diagnosis: Likely upper respiratory infection, viral infection and other (Asthma exacerbation, urticaria, allergic reaction, viral rashes) Medical Records Attestation: I reviewed the patient's medical records. Lab Data Attestation: I reviewed the patient's lab results. Labs: Lab Results 12/12/19 Range/Units 11:29 Chlamy pneumoniae PCR Not detected (Not Detect) Adenovirus (PCR) Not detected (Not Detect) B.parapertussis DNA PCR Not detected (Not Detect) Coronavirus OC43 (PCR) Not detected (Not Detect) Coronavirus HKU1 (PCR) Not detected (Not Detect) Coronavirus 229E (PCR) Not detected (Not Detect) Coronavirus NL63 (PCR) Not detected (Not Detect) Human Metapneumovir PCR Not detected (Not Detect) Influenza Type A (PCR) Not detected (Not Detect) Influenza Type B (PCR) Not detected (Not Detect) M. pneumoniae (PCR) Not detected (Not Detect) Parainfluenza 1 (PCR) Not detected (Not Detect) Parainfluenza 2 (PCR) Not detected (Not Detect) Parainfluenza 3 (PCR) Not detected (Not Detect) Parainfluenza 4 (PCR) Not detected (Not Detect) RSV (PCR) Not detected (Not Detect) Entero/Rhino (PCR) Detected H (Not Detect) Imaging Data Chest x-ray: Radiologist's Impression: [address] [address] XRay Report Signed Patient: Irene Guzman LMR#: [id number] : 1985Acct:[id number] Age/Sex: 34 / MDate of Service: 12/12/19 Loc: ED Accession Number: [id number] Procedure: XR chest 2V Ordering Provider: Iain Rider PROCEDURE: XR CHEST 2V INDICATIONS: productive cough for 3 days, SOB, wheezing TECHNIQUE: 2 views of the chest were acquired. COMPARISON: [facility], CR, XR CHEST 2V, 04/27/2019, 10:21. FINDINGS: Surgical changes and devices: None. Lungs and pleura: Lungs are clear. No pleural effusions or pneumothorax. Mediastinum: Mediastinal contours are normal. Heart size is normal. Bones and chest wall: No suspicious bony abnormalities. Soft tissues appear unremarkable. IMPRESSION: No acute pulmonary process. Dictated by: Suzette Waldrop M.D. on 12/12/2019 at 13:14 Approved by: Suzette Waldrop M.D. on 12/12/2019 at 13:14 [facility] Narrative Medical decision making narrative: This is a 34-year-old male who has history of asthma presents to ED with increasing short of breath, wheezing, cough for last 3 days. Strep throat and flu tests were negative had his doctor's office prior coming into ED. patient was treated with DuoNeb and additional nebulizer treatment for wheezing and short of breath which improved his symptoms. Patient was medicated with 60 mg of prednisone upon arrival. X-ray test does not show acute pulmonary process. Patient also had initially scattered erythematous and mildly raised rashes in bilateral upper and lower extremities with some urticaria appearing rashes on his upper body which became worse during his ED stay. Patient reported increasing pruritus and increasing size and distribution of the rash. Patient was medicated with IV Benadryl and Pepcid improved his arms shortly after. Patient was ambulated around shelter twice with some short of and he was able to keep his O2 sat in 92 in 3 person. Respiratory panel returned with positive for rhino virus. Patient's symptoms likely due to this with asthma exacerbation. Patient discharged to home with 5 day course of prednisone and advised to use inhaler as needed for short of breath, wheezing, frequent cough. Patient also discharged to home with Zantac for b.i.d. course and Benadryl as needed for rash. Return precautions were discussed with the patient and advised to follow PCP in couple of days for re-evaluation. Patient verbalized understanding in agreement with treatment plan. Her cough nose for several days provided and advised to rest, hydrate well, use good hand hygiene to prevent transmitting illness to others. <Kya Aaron MD - Last Filed: 12/13/19 06:58> Lab Data Labs: Lab Results 12/12/19 Range/Units 11:29 Chlamy pneumoniae PCR Not detected (Not Detect) Adenovirus (PCR) Not detected (Not Detect) B.parapertussis DNA PCR Not detected (Not Detect) Coronavirus OC43 (PCR) Not detected (Not Detect) Coronavirus HKU1 (PCR) Not detected (Not Detect) Coronavirus 229E (PCR) Not detected (Not Detect) Coronavirus NL63 (PCR) Not detected (Not Detect) Human Metapneumovir PCR Not detected (Not Detect) Influenza Type A (PCR) Not detected (Not Detect) Influenza Type B (PCR) Not detected (Not Detect) M. pneumoniae (PCR) Not detected (Not Detect) Parainfluenza 1 (PCR) Not detected (Not Detect) Parainfluenza 2 (PCR) Not detected (Not Detect) Parainfluenza 3 (PCR) Not detected (Not Detect) Parainfluenza 4 (PCR) Not detected (Not Detect) RSV (PCR) Not detected (Not Detect) Entero/Rhino (PCR) Detected H (Not Detect) Discharge Plan Departure Patient Disposition: Home Clinical Impression: Acute upper respiratory infection, Urticaria Asthma exacerbation Qualifiers: Asthma severity: unspecified severity Asthma persistence: unspecified Qualified Code(s): J45.901 - Unspecified asthma with (acute) exacerbation Discharge Date/Time: 12/12/19 15:40 Instructions: DI for Asthma -- Adult, DI for Viral Upper Respiratory Infection -- Adult, DI for Hives Activity Restrictions/Additional Instructions: You have been diagnosed with [asthma exacerbation from rhino virus/upper respiratory infection, urticaria likely due to allergy reaction]. What to do: *Take your medications as directed. Please start taking steroids from tomorrow since you were treated while in the ED. if itching rash continues, you can take Benadryl 25-50 mg up to 3 to 4 times a day as needed, Zantac 150 mg twice a day to decrease allergy reaction. Continue to use your albuterol inhaler as needed Q 4-6 hours. Please continue to use good hand hygiene, hydrate yourself well and stay home until your feeling better and no fever for 24 hours. *Follow up with your primary care provider in 2-3 days, call for an appointment. Let them know you were seen in the ED and that we asked you to be seen in follow up. *Return to ED if you have any new, worsening, or concerning symptoms, such as [chest pain, breathing difficulty, unable to tolerate fluids or any acute concerns]. Prescriptions: New ranitidine HCl 150 mg capsule 150 mg PO BID Qty: 14 RF: 0 diphenhydramine HCl [Benadryl Allergy] 25 mg tablet 25 - 50 mg PO Q6-8H PRN (Reason: allergic symptoms) Qty: 20 RF: 0 prednisone 50 mg tablet 50 mg PO DAILY 5 Days Qty: 5 RF: 0 No Action albuterol sulfate 90 mcg/actuation HFA aerosol inhaler 2 puff inhalation Q4H PRN (Reason: breathing) RF: 0 fluticasone propion-salmeterol [Advair Diskus] 250-50 mcg/dose blister with device 1 inhalation INHALATION BID Qty: 60 RF: 0 Dayquil Nightquil Combo 1 dose PO PRN PRN (Reason: cold and flu symptoms) RF: 0 Stand Alone Forms: Work Release Note
[2019-12-12 12:56] LABS: Adenovirus Not Detected (Not Detect); Bordetella pertussis Not Detected (Not Detect); Chlamydophila pneumoniae Not Detected (Not Detect); Coronavirus 229E Not Detected (Not Detect); Coronavirus HKU1 Not Detected (Not Detect); Coronavirus NL 63 Not Detected (Not Detect); Coronavirus OC43 Not Detected (Not Detect); Human Metapneumovirus Not Detected (Not Detect); Human Rhinovirus/Enterovirus Detected (Not Detect); Influenza A Not Detected (Not Detect); Influenza B Not Detected (Not Detect); Mycoplasma pneumoniae Not Detected (Not Detect); Parainfluenza Virus 1 Not Detected (Not Detect); Parainfluenza Virus 2 Not Detected (Not Detect); Parainfluenza Virus 3 Not Detected (Not Detect); Parainfluenza Virus 4 Not Detected (Not Detect); Respiratory Syncytial Virus Not Detected (Not Detect)
[2019-12-12] MEDS: ALBUTEROL 2.5 MG/3 ML NEB (ADULT) 5 MG INH (13:31)
[2019-12-12] MEDS: FAMOTIDINE 20 MG/50 ML PIGGYBACK 200 MG IV (14:25)
[2019-12-12] MEDS: diphenhydrAMINE 50 MG/ML VIAL IV (14:26)
== END 2019-12-12 15:40 | disposition home or self-care (01) ==
PROVIDERS: Emergency Provider Nurse Practitioner Family
DX: J06.9 Acute upper respiratory infection, unspecified (principal); L50.9 Urticaria, unspecified; J45.901 Unspecified asthma with (acute) exacerbation
CPT/HCPCS: 71046; 87633; 94150; 94640; 96365; 96375; 99284; J1200; J7613

== ENCOUNTER 2023-12-29 21:22 | Emergency (ER) | payer MEDICAID, SELFPAY ==
[2019-04-27 12:17] VITALS: BMI 39.5
[2023-12-29 21:31] VITALS: BP 141/91; PULSE 89; RESP 36; TEMP 36.4; O2SAT 96; BMI 33.0
--- NOTE | 2023-12-29 21:32 | ED_ITS ---
HPI - General Adult General Chief complaint: Shortness of Breath/Dyspnea Stated complaint: asthma attack Time Seen by Provider: 12/29/23 21:29 Source: patient Mode of arrival: Ambulatory Limitations: no limitations History of Present Illness HPI narrative: 38-year-old male. Has a history of asthma. Uses his albuterol inhaler on a regular basis. Ran out of his albuterol inhaler and also his inhaled steroids. Has been without his medicines for the past day or so. Here for evaluation of shortness of breath and wheezing. No fevers. He is coughing. He has a prescription for his medications already of the pharmacy but did not get around to picking them up today. Related Data Home Medications Medication Instructions Recorded Confirmed albuterol sulfate 90 mcg/actuation 2 puff inhalation Q4H PRN breathing 04/27/19 12/12/19 aerosol inhaler Dayquil Nightquil Combo 1 dose PO PRN PRN cold and flu 12/12/19 12/12/19 symptoms Previous Rx's Medication Instructions Recorded fluticasone 250 mcg-salmeterol 50 1 inhalation inhalation BID #60 ea 04/29/19 mcg/dose blistr powdr for inhalation (Advair Diskus) diphenhydramine HCl 25 mg tablet 25 - 50 mg (1 - 2 x 25 mg) PO 12/12/19 (Benadryl Allergy) Q6-8H PRN allergic symptoms #20 tabs ranitidine HCl 150 mg capsule 150 mg PO BID #14 caps 12/12/19 Allergies Allergy/AdvReac Type Severity Reaction Status Date / Time naproxen [NAPROXEN] Allergy Severe Wheezing Verified 12/29/23 21:31 Review of Systems Constitutional Constitutional: Reports system reviewed and no additional complaints, except as documented Cardiovascular Cardiovascular: Reports system reviewed and no additional complaints, except as documented Respiratory Respiratory: Reports system reviewed and no additional complaints, except as documented Integumentary/Breasts Skin/Breast: Reports system reviewed and no additional complaints, except as documented Patient History Medical History Mild persistent asthma Healthy adult Surgical History No pertinent past surgical history Social History household members: none Smoking Status: Former smoker alcohol intake: current substance use type: marijuana Smoking Status: Former smoker alcohol intake frequency: a few times a week Substance Use Type: marijuana Exam Initial Vital Signs Initial Vital Signs: Vital Signs Temperature 97.6 F 12/29/23 21:31 Pulse Rate 89 12/29/23 21:31 Respiratory Rate 36 H 12/29/23 21:31 Blood Pressure 141/91 H 12/29/23 21:31 Pulse Oximetry 96 12/29/23 21:31 Oxygen Delivery Method Room Air 12/29/23 21:31 Const General: cooperative, comfortable and No ill appearing Resp Effort & Inspection: normal respiratory effort, cough and tachypneic Auscultation: wheezes Cardio Rate: regular rate Rhythm: regular rhythm Skin General: no rashes or lesions noted Neuro General: patient alert, patient awake and moves all extremities Course Orders Ordered: Discontinued Medications Albuterol (Albuterol 2.5 Mg/3 Ml Neb (Adult)) 7.5 mg INH NOW ONE Stop: 12/29/23 21:44 Last Admin: 12/29/23 21:47 Dose: 7.5 mg Documented By: PRUDENCIO Albuterol (Albuterol Hfa Prepack) 1 box MISC DIRECTED ONE Stop: 12/29/23 22:36 Albuterol/Ipratropium (Albuterol/Ipratropium 3 Ml Ampul) 3 ml INH NOW ONE Stop: 12/29/23 21:45 Last Admin: 12/29/23 21:47 Dose: 3 ml Documented By: PRUDENCIO Vital Signs Vital signs: Vital Signs - 8 hr 12/29/23 21:31 12/29/23 22:06 12/29/23 22:25 Temperature 97.6 F Pulse Rate 89 93 H Respiratory Rate 36 H Blood Pressure 141/91 H Pulse Oximetry 96 98 97 Oxygen Delivery Method Room Air Room Air Room Air Medical Decision Making MDM Narrative Medical decision making narrative: After his nebulizer treatments here in the ER his symptoms resolved. He was no longer wheezing. Not hypoxic. No indication for antibiotics. We will hold on steroids for now. Advised that he talk with his primary care provider about potentially switch around his medicines that he has not using his rescue inhaler as often. 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 Will discharge patient home with return precautions. He expressed understanding and agreement. Discharge Plan Departure Patient Disposition: Home Clinical Impression: Asthma exacerbation Instructions: DI for Asthma -- Adult Activity Restrictions/Additional Instructions: Recommend that you talk with your providers on the [facility] about potentially changing her medications so that you were not using the albuterol as often. Fill your prescriptions that are currently at the pharmacy tomorrow. Return to the emergency department for new symptoms. Prescriptions: No Action albuterol sulfate 90 mcg/actuation HFA aerosol inhaler 2 puff inhalation Q4H PRN (Reason: breathing) Patient Comments: INHALE 2 PUFFS BY MOUTH EVERY 4 HOURS IF NEEDED FOR BREATHING fluticasone propion-salmeterol [Advair Diskus] 250-50 mcg/dose blister with device 1 inhalation INHALATION BID Qty: 60 0RF Dayquil Nightquil Combo 1 dose PO PRN PRN (Reason: cold and flu symptoms) ranitidine HCl 150 mg capsule 150 mg PO BID Qty: 14 0RF diphenhydramine HCl [Benadryl Allergy] 25 mg tablet 25 - 50 mg PO Q6-8H PRN (Reason: allergic symptoms) Qty: 20 0RF Stand Alone Forms: Patient Portal/API
[2023-12-29] MEDS: ALBUTEROL/IPRATROPIUM 3 ML AMPUL INH (21:47)
[2023-12-29] MEDS: ALBUTEROL 2.5 MG/3 ML NEB (ADULT) 7.5 MG INH (21:47)
[2023-12-29 22:06] VITALS: O2SAT 98
[2023-12-29 22:25] VITALS: PULSE 93; O2SAT 97
[2023-12-29 22:30] VITALS: BP 137/65; PULSE 92; O2SAT 96
[2023-12-29] MEDS: ALBUTEROL HFA PREPACK 1 BOX MISC (22:43)
== END 2023-12-29 22:50 | disposition home or self-care (01) ==
PROVIDERS: Emergency Provider Emergency Medicine
DX: J45.901 Unspecified asthma with (acute) exacerbation (principal); Z87.891 Personal history of nicotine dependence
CPT/HCPCS: 99283; J7613

== ENCOUNTER 2025-04-06 22:01 | Emergency (ER) | payer MEDICAID, SELFPAY ==
[2019-04-27 12:17] VITALS: BMI 39.5
[2025-04-06 22:10] VITALS: BP 150/79; PULSE 94; RESP 18; TEMP 37.1; O2SAT 94; BMI 36.9
--- NOTE | 2025-04-06 22:13 | DI.RAD.S_ITS ---
PROCEDURE: XR FOREARM LT 2V INDICATIONS: pain TECHNIQUE: 2 views of the forearm were acquired. COMPARISON: None. FINDINGS: Bones: No fractures or dislocations. No suspicious bony lesions. Soft tissues: No suspicious soft tissue calcifications or masses. IMPRESSION: No acute bony abnormality. Approved by: Christina Jamil M.D.,Ph.D. on 04/06/2025 at 22:49
[2025-04-06] MEDS: ACETAMINOPHEN 325 MG TABLET 975 MG PO (22:18)
[2025-04-06] MEDS: IBUPROFEN 400 MG TABLET 800 MG PO (22:18)
--- NOTE | 2025-04-07 00:13 | ED_ITS ---
HPI - Extremity Injury (Upper) General Chief Complaint: Extremity Injury, Upper Stated Complaint: Swelling in Lt forearm x 4 days Time Seen by Provider: 04/06/25 23:39 Source: patient Mode of arrival: Ambulatory History of Present Illness HPI narrative: 40-year-old male right-handed, was participating in for his mother on Thursday, holding 5 lb ringing bells during a ceremony, afterwards had discomfort left wrist, that has been persisting. No direct blow trauma, just overuse like injury. No other areas of discomfort, no other areas injured. No new left wrist injuries. He has not tried [id number] pain medications. Related Data Home Medications ?Medication ?Instructions ?Recorded ?Confirmed albuterol sulfate 90 mcg/actuation 2 puff inhalation Q 4H PRN breathing 04/27/19 12/12/19 aerosol inhaler Dayquil Nightquil Combo 1 dose PO PRN PRN cold and f valentín 12/12/19 12/12/19 symptoms Previous Rx's ?Medication ?Instructions ?Recorded fluticasone 250 mcg-salmeterol 50 1 inhalation inhalat ion BID #60 ea 04/29/19 mcg/dose blistr powdr for inhalation (Advair Diskus) diphenhydramine HCl 25 mg tablet 25 - 50 mg (1 - 2 x 2 5 mg) PO 12/12/19 (Benadryl Allergy) Q6-8H PRN allergic symptoms #20 tabs ranitidine HCl 150 mg capsule 150 mg PO BID #14 caps 0 12/12/19 Allergies Allergy/AdvReac Type Severity Reaction Status Date / Time naproxen (NAPROXEN) Allergy Severe Wheezing Verified 04/06/25 22:10 Patient History Medical History (Updated 04/07/25 @ 00:29 by Rony aLinez MD) Mild persistent asthma Healthy adult Surgical History No pertinent past surgical history Social History household members: none Smoking Status: Never smoker alcohol intake: current substance use type: marijuana Smoking Status: Never smoker alcohol intake frequency: a few times a week Exam Narrative Exam Narrative: GENERAL: Well-developed patient, in mild distress. HEAD: Atraumatic. Normocephalic. EYES: Pupils equal round and reactive. Extraocular motions intact. No scleral icterus. No injection or drainage. ENT: Nose without bleeding, purulent drainage. Throat without erythema, tonsillar hypertrophy or exudate. Airway patent. NECK: Trachea midline. Non tender CARDIOVASCULAR: Regular rate and rhythm without murmurs, gallops, or rubs. RESPIRATORY: Clear to auscultation. Breath sounds equal bilaterally. No wheezes, rales, or rhonchi. GASTROINTESTINAL: Abdomen soft, non-tender, nondistended. EXTREMITIES: Tenderness left distal forearm without gross deformity, some diminished flexion-extension to the left wrist area discomfort. No skin changes or redness or bruising or laceration or abrasion changes. No gross edema or effusions. Good perfusion distal hand/fingers. No tenderness to the proximal forearm, elbow, upper arm, shoulder, or along clavicle. BACK: Nontender without deformity or crepitance. No flank tenderness. NEURO: AOx3. Motor functions grossly nonfocal. SKIN: No rash or erythema of visible areas Initial Vital Signs Initial Vital Signs: Vital Signs Temperature 98.7 F 04/06/25 22:10 Pulse Rate 94 H 04/06/25 22:10 Respiratory Rate 18 04/06/25 22:10 Blood Pressure 150/79 H 04/06/25 22:10 Pulse Oximetry 94 04/06/25 22:10 Oxygen Delivery Method Room Air 04/06/25 22:10 Course Orders Ordered: ED Orders 04/06/25 22:13 XR forearm LT 2V Stat Discontinued Medications Acetaminophen (Acetaminophen 325 Mg Tablet) 975 mg PO NOW ONE Stop: 04/06/25 22:14 Last Admin: 04/06/25 22:18 Dose: 975 mg Documented By: LAURA Ibuprofen (Ibuprofen 400 Mg Tablet) 800 mg PO NOW ONE Stop: 04/06/25 22:14 Last Admin: 04/06/25 22:18 Dose: 800 mg Documented By: LAURA Vital Signs Vital signs: Vital Signs - 8 hr 04/06/25 22:10 04/07/25 00:36 Temperature 98.7 F Pulse Rate 94 H 71 Respiratory Rate 18 21 Blood Pressure 150/79 H 119/69 Pulse Oximetry 94 96 Oxygen Delivery Method Room Air Room Air MDM - Extremity Injury (Upper) Imaging Data Extremity x-ray #1: Radiologist's Impression: [address] [address] XRay Report Signed Patient: Irene Guzman MR#: [id number] : 1985 Acct:[id number] Age/Sex: 40 / M Date of Service: 04/06/25 Loc: ED Accession Number: [id number] Procedure: XR forearm LT 2V Ordering Provider: Rony Lainez MD PROCEDURE: XR FOREARM LT 2V INDICATIONS: pain TECHNIQUE: 2 views of the forearm were acquired. COMPARISON: None. FINDINGS: Bones: No fractures or dislocations. No suspicious bony lesions. Soft tissues: No suspicious soft tissue calcifications or masses. IMPRESSION: No acute bony abnormality. Approved by: Christina Jamil M.D.,Ph.D. on 04/06/2025 at 22:49 MDM Narrative Medical decision making narrative: 40-year-old male right-handed was recently participating in service for his mother, in a [employer] ringing choir ceremony, 5 lb bells each hand, after the ceremony felt some discomfort in his left wrist, that has been persisting. No new injuries. Some tenderness distal wrist without gross deformity. Screening x-ray negative. Suspect likely overuse and non dominant hand. Velcro wrist splint. [id number] analgesics advised to use if needed. No significant warmth or any gross effusions symptomatic left wrist, doubt need for blood work or joint tap at this time. Trial of splinting in [id number] analgesics, rest, ice, elevation. Recheck early next week advised. Return precautions discussed. Discharge Plan Departure Patient Disposition: Home Clinical Impression: Strain of left wrist Activity Restrictions/Additional Instructions: Left wrist pain persisting after ceremony, right-handed, using Aguirre's during ceremony that are 5 lb weight, no direct blow or other injury to either wrist, but persisting left wrist pain since the event. No gross deformity of the left wrist, but distal forearm tenderness on examination with diminished range of motion to the wrist. X-ray left wrist showed no bony injuries or lesions. Likely overuse type strain by history. Trial of splinting in Velcro left wrist splint for now. Advised to use [id number] Tylenol and or Motrin as needed for pain control. Consider elevation and application of ice as tolerated. Recheck with your regular doctor early this next week. Return to this/nearest emergency department for any change worsening symptoms or any concerns prior. Prescriptions: No Action albuterol sulfate 90 mcg/actuation HFA aerosol inhaler 2 puff inhalation Q4H PRN (Reason: breathing) Patient Comments: INHALE 2 PUFFS BY MOUTH EVERY 4 HOURS IF NEEDED FOR BREATHING fluticasone propion-salmeterol [Advair Diskus] 250-50 mcg/dose blister with device 1 inhalation INHALATION BID Qty: 60 0RF Dayquil Nightquil Combo 1 dose PO PRN PRN (Reason: cold and flu symptoms) ranitidine HCl 150 mg capsule 150 mg PO BID Qty: 14 0RF diphenhydramine HCl [Benadryl Allergy] 25 mg tablet 25 - 50 mg PO Q6-8H PRN (Reason: allergic symptoms) Qty: 20 0RF Stand Alone Forms: Patient Portal/API
[2025-04-07 00:36] VITALS: BP 119/69; PULSE 71; RESP 21; O2SAT 96
== END 2025-04-07 00:38 | disposition home or self-care (01) ==
PROVIDERS: Emergency Provider Emergency Medicine
DX: S66.912A Strain of unspecified muscle, fascia and tendon at wrist and hand level, left hand, initial encounter (principal); X50.9XXA Other and unspecified overexertion or strenuous movements or postures, initial encounter; Y93.89 Activity, other specified
CPT/HCPCS: 29260; 73090; 99283